=== PATIENT | female | born 1940 | race Caucasian/White ===

== ENCOUNTER 2019-07-25 10:09 | Inpatient (IN) | payer OTHER ==
[~2019-07-25] VITALS: Ht 165.1 cm; Wt 93.0 kg
[2019-07-25 14:00] VITALS: BP 134/60
--- NOTE | 2019-07-25 14:00 | NUR ---
tele pediatric allergist: initial assessment admitted this 78 year old from [facility] as a direct admit. pt is awake, a/ox4. able to ambulate with assistance. pt uses a cane to walk as stated. oriented to room and surroundings. place pt on tele sr=80's with 1st degree av block with bbb. vss. afebrile. denies sob, chest pain, or any discomfort. in no apparent distress noted. instructed to call for assistance. will continue to monitor.
[2019-07-25] MEDS ORDERED: MAGNESIUM HYDROXIDE 30 ML UDC PO PRN (14:30)
[2019-07-25] MEDS ORDERED: ACETAMINOPHEN 325 MG TABLET PO PRN (14:30)
[2019-07-25] MEDS ORDERED: ONDANSETRON HCL/PF 4 MG/2 ML VIAL IVP PRN (14:30)
[2019-07-25] MEDS ORDERED: MAG HYDROX/AL HYDROX/SIMETH 30 ML UDC PO PRN (14:30)
[2019-07-25] MEDS ORDERED: Z GUARD REMEDY 2 OZ OINT TP PRN (14:30)
[2019-07-25 15:19] LABS: BASOPHILS % (AUTO) 0.2 % (0.0-2.0); HEMATOCRIT 40 % (33-45); HEMOGLOBIN 13.3 g/dL (11.5-14.8); LYMPHOCYTES # (AUTO) 0.2 /CMM (0.8-4.8); LYMPHOCYTES % (AUTO) 2.5 % (20.0-44.0); MEAN CORPUSCULAR HGB CONC 34 g/dl (31.0-36.0); MEAN CORPUSCULAR VOLUME 86 fL (82-100); MONOCYTES # (AUTO) 0.1 /CMM (0.1-1.30); MONOCYTES % (AUTO) 0.6 % (2.0-12.0); NEUTROPHILS # (AUTO) 8.1 /CMM (1.8-8.9); NEUTROPHILS % (AUTO) 96.7 % (43.0-81.0); PLATELET COUNT (AUTO) 270 /CMM (150-450); WHITE BLOOD COUNT (AUTO) 8.4 K/uL (4.3-11.0)
[2019-07-25] MEDS ORDERED: ATEN25TA PO (15:26)
[2019-07-25] MEDS ORDERED: UMEC1BLS PO (15:26)
[2019-07-25] MEDS ORDERED: SPIR100T5 PO (15:26)
[2019-07-25] MEDS ORDERED: RIVA10TA PO (15:26)
[2019-07-25] MEDS ORDERED: PRED5DRO16 OP (15:26)
[2019-07-25] MEDS ORDERED: PRED10TA PO (15:26)
[2019-07-25] MEDS ORDERED: ATOR20TA PO (15:26)
[2019-07-25] MEDS ORDERED: MONT10TA22 PO (15:26)
[2019-07-25] MEDS ORDERED: FLEC100T2 PO (15:26)
[2019-07-25] MEDS ORDERED: PARO20TA7 PO (15:29)
[2019-07-25 15:34] LABS: ALBUMIN 3.1 g/dL (3.4-5.0); BILIRUBIN,TOTAL 0.6 mg/dL (0.2-1.0); CALCIUM, SERUM 9.6 mg/dL (8.5-10.1); MAGNESIUM 1.5 mg/dL (1.8-2.4); PHOSPHORUS 1.8 mg/dL (2.5-4.9); POTASSIUM 3.9 mmol/L (3.5-5.1); TOTAL PROTEIN, SERUM 6.5 g/dL (6.4-8.2)
[2019-07-25] MEDS: ALBUTEROL FS 2.5 MG/0.5 ML VIAL.NEB NEB SCH ×2 (15:58→20:28)
[2019-07-25] MEDS: IPRATROPIUM NEB FS 0.5 MG/2.5 ML AMPUL.NEB NEB SCH ×2 (15:59→20:28)
[2019-07-25 16:00] VITALS: BP 118/68
--- NOTE | 2019-07-25 16:10 | NUR ---
tele furnace brazer: notes remains at bedside. no c/o sob or any discomfort. mrsa suirvellance to both nostril collected and sent to lab.
[2019-07-25] MEDS: AZITHROMYCIN 250 MG TABLET PO SCH (16:30)
[2019-07-25] MEDS ORDERED: ENOXAPARIN SODIUM 40 MG/0.4 ML DISP.SYRIN SQ SCH (17:00)
--- NOTE | 2019-07-25 17:25 | NUR ---
tele wash operator: notes araceli (acnp) here and informed her that pt is on xarelto at home and clarify if lovenox still needed, stated, "i will discontinue that."
--- NOTE | 2019-07-25 17:35 | NUR ---
tele hospice team lead: md visit araceli gutierrez (acnp) at bedside at this time.
[2019-07-25] MEDS ORDERED: DEXTROSE 50%-WATER 50 ML DISP.SYRIN IV PRN (18:30)
--- NOTE | 2019-07-25 18:40 | NUR ---
tele lance crewmember/mlrs sergeant: notes resting comfortable in bed. needs attended. no distress noted. remains at bedside. will continue to monitor.
--- NOTE | 2019-07-25 19:20 | NUR ---
m/s supervisor agency appointments: notes bedside report given to efe (rn) for continuity of care.
[2019-07-25 20:41] VITALS: BP 128/58
[2019-07-25] MEDS: ATORVASTATIN 10 MG TABLET PO SCH (21:43)
[2019-07-25] MEDS: BLOOD SUGAR DIAGNOSTIC 1 EACH STRIP IN SCH (21:44)
[2019-07-25] MEDS: INSULIN REGULAR, HUMAN 100 UNIT/ML 3 ML VIAL SQ PRN (22:28)
[2019-07-26] VITALS (7 sets, daily range): BP systolic 105–128; BP diastolic 49–67
[2019-07-26] MEDS ORDERED: IPRATROPIUM NEB FS 0.5 MG/2.5 ML AMPUL.NEB NEB PRN (05:00)
[2019-07-26] MEDS ORDERED: ALBUTEROL FS 2.5 MG/0.5 ML VIAL.NEB NEB PRN (05:00)
[2019-07-26] MEDS: INSULIN REGULAR, HUMAN 100 UNIT/ML 3 ML VIAL SQ PRN ×3 (06:02→16:37)
[2019-07-26] MEDS: BLOOD SUGAR DIAGNOSTIC 1 EACH STRIP IN SCH ×4 (06:33→22:12)
[2019-07-26 06:51] LABS: BASOPHILS % (AUTO) 0.2 % (0.0-2.0); EOSINOPHILS % (AUTO) 0.1 % (0.0-6.0); HEMATOCRIT 38 % (33-45); HEMOGLOBIN 12.8 g/dL (11.5-14.8); LYMPHOCYTES # (AUTO) 1.3 /CMM (0.8-4.8); LYMPHOCYTES % (AUTO) 9.2 % (20.0-44.0); MEAN CORPUSCULAR HGB CONC 34 g/dl (31.0-36.0); MEAN CORPUSCULAR VOLUME 86 fL (82-100); MONOCYTES % (AUTO) 7.1 % (2.0-12.0); NEUTROPHILS # (AUTO) 11.8 /CMM (1.8-8.9); NEUTROPHILS % (AUTO) 83.4 % (43.0-81.0); PLATELET COUNT (AUTO) 288 /CMM (150-450); RED BLOOD CELL COUNT(AUTO) 4.44 MIL/uL (4.0-5.2); WHITE BLOOD COUNT (AUTO) 14.2 K/uL (4.3-11.0)
--- NOTE | 2019-07-26 07:03 | NUR ---
SUPERVISOR TICKET SALES NOTES PATIENT ASLEEP IN BED WITH NO DISTRESS NOTED. CALL LIGHT WITHIN REACH. ALL DUE MEDS GIVEN ORDERED WITH NO ASE NOTED. NO FURTHER C/O PAIN OR DISCOMFORT. PERIPHERAL LINE INTACT AND PATENT. BED IN LOW LOCK SETTING. ROOM FREE OF CLUTTER AND BELONGINGS KEPT NEAR BEDSIDE. WILL CONTINUE TO MONITOR
[2019-07-26 07:14] LABS: CALCIUM, SERUM 10.1 mg/dL (8.5-10.1); MAGNESIUM 1.8 mg/dL (1.8-2.4); PHOSPHORUS 2.6 mg/dL (2.5-4.9); POTASSIUM 4.2 mmol/L (3.5-5.1)
--- NOTE | 2019-07-26 07:15 | NUR ---
FISHING GEAR MECHANIC OPENING NOTES RECEIVED PT LYING ON BED,SLEEPING.ON 2LPM O2 VIA NC CONTINUOUSLY. ON TELE HR IS 67 WITH NSR.NO SOB AND ACUTE DISTRESS NOTED.IV LINE IS ON RIGHT AC G22,SL.SITE IS CLEAN,DRY AND INTACT.NO INFILTRATION NOTED.SAFETY IS MAINTAINED AT ALL TIMES.BED IS IN LOW POSITION AND LOCKED.CALL LIGHT IS WITHIN REACH.WILL CONTINUE TO MONITOR THE PT CLOSELY.
[2019-07-26 07:25] LABS: THYROID STIMULATING HORMONE 1.304 uIU/mL (0.358-3.74)
[2019-07-26] MEDS: IPRATROPIUM NEB FS 0.5 MG/2.5 ML AMPUL.NEB NEB SCH ×6 (07:35→23:06)
[2019-07-26] MEDS: ALBUTEROL FS 2.5 MG/0.5 ML VIAL.NEB NEB SCH ×6 (07:35→23:06)
[2019-07-26] MEDS: ATENOLOL 25 MG TABLET PO SCH (08:18)
[2019-07-26] MEDS: PAROXETINE HCL 20 MG TABLET PO SCH (08:18)
[2019-07-26] MEDS: PANTOPRAZOLE 40 MG TABLET.DR PO SCH (08:18)
[2019-07-26] MEDS: MONTELUKAST SODIUM (10MG) 10 MG TABLET PO SCH (08:18)
[2019-07-26] MEDS: FLECAINIDE ACETATE (100 MG) 100 MG TABLET PO SCH ×2 (08:19→16:36)
[2019-07-26] MEDS: prednisoLONE ACET 1% OPHT DROP 5 ML BOTTLE OP SCH ×2 (08:19→16:36)
[2019-07-26] MEDS: SPIRONOLACTONE 25 MG TABLET PO SCH (08:21)
[2019-07-26] MEDS: RIVAROXABAN 10 MG TABLET PO SCH (08:30)
[2019-07-26] MEDS: FLUTICASONE/VILANTEROL 1 EACH BLST.W.DEV IH SCH (09:54)
--- NOTE | 2019-07-26 11:30 | NUR ---
FOOD PRESERVATION SCIENTIST NOTES PT IS REQUESTED TO REMOVE THE IV LINE ON RIGHT AC,MAKES SO DISCOMFORT.OFFERED TO INSERT ANOTHER ONE,BUT SHE REFUSED X3.REMOVED AND NO BLEEDING NOTED.
[2019-07-26] MEDS: AZITHROMYCIN 250 MG TABLET PO SCH (16:35)
--- NOTE | 2019-07-26 18:32 | NUR ---
MONUMENT STONECUTTER CLOSING NOTES PT IS LYING ON BED.ALERT/ORIENTED X4.ON 2LPM O2 VIA NC CONTINUOUSLY.NO SOB NOTED.CAN AMBULATE WELL WITH ONE PERSON ASSISTANCE.NO SIGNIFICANT CHANGES NOTED IN THE SHIFT.VITAL SIGNS ARE STABLE.WILL ENDORSE TO LAWN MOWER RN FOR HEMANT AND PENDING URINE COLLECTION.
--- NOTE | 2019-07-26 19:52 | NUR ---
CRAFT RECRUITER NOTES PATIENT ASLEEP IN BED WITH NO DISTRESS NOTED. CALL LIGHT WITHIN REACH. AT BEDSIDE. NO C/O PAIN OR DISCOMFORT. ENCOURAGED USE OF CALL LIGHT FOR ASSISTANCE AND VERBALIZED GOOD UNDERSTANDING. BED IN LOW LOCK SETTING. ROOM FREE OF CLUTTER AND BELONGINGS KEPT NEAR BEDSIDE. WILL CONTINUE TO MONITOR
[2019-07-26] MEDS: ATORVASTATIN 10 MG TABLET PO SCH (22:12)
[2019-07-26] MEDS: methylPREDNISolone SOD SUCC 40 MG/ML VIAL IV SCH (22:12)
[2019-07-26 23:38] LABS: APPEARANCE,URINE Clear (CLEAR); BILIRUBIN,URINE Negative (NEGATIVE); BLOOD, URINE Negative Ery/uL (NEGATIVE); COLOR,URINE Yellow (YELLOW); KETONES,URINE Negative (NEGATIVE); LEUKOCYTE ESTERASE ,URINE Trace (NEGATIVE); NITRITE, URINE Negative (NEGATIVE); PH,URINE 6.5 (5.0-8.0); PROTEIN,URINE Negative (NEGATIVE); UGLUCOSE Negative (NEGATIVE); UROBILINOGEN,URINE 0.2 EU/dL (0.2)
[2019-07-26 23:47] LABS: BACTERIA,URINE Few /HPF (None Seen); RBC,URINE NONE SEEN /HPF (0-2); SQUAMOUS EPITHELIAL CELL,UR Few /HPF (None Seen); WBC,URINE 0-2 /HPF (0-3)
[2019-07-27] MEDS: ALBUTEROL FS 2.5 MG/0.5 ML VIAL.NEB NEB SCH ×2 (03:21→07:55)
[2019-07-27] MEDS: IPRATROPIUM NEB FS 0.5 MG/2.5 ML AMPUL.NEB NEB SCH ×2 (03:21→07:55)
[2019-07-27 04:00] VITALS: BP 115/63
[2019-07-27] MEDS: INSULIN REGULAR, HUMAN 100 UNIT/ML 3 ML VIAL SQ PRN (06:10)
[2019-07-27 06:23] LABS: BASOPHILS % (AUTO) 0.3 % (0.0-2.0); HEMATOCRIT 36 % (33-45); LYMPHOCYTES # (AUTO) 0.4 /CMM (0.8-4.8); MEAN CORPUSCULAR HGB CONC 33 g/dl (31.0-36.0); MEAN CORPUSCULAR VOLUME 86 fL (82-100); MONOCYTES # (AUTO) 0.1 /CMM (0.1-1.30); MONOCYTES % (AUTO) 1.3 % (2.0-12.0); NEUTROPHILS # (AUTO) 8.2 /CMM (1.8-8.9); NEUTROPHILS % (AUTO) 94.4 % (43.0-81.0); PLATELET COUNT (AUTO) 262 /CMM (150-450); RED BLOOD CELL COUNT(AUTO) 4.21 MIL/uL (4.0-5.2); WHITE BLOOD COUNT (AUTO) 8.7 K/uL (4.3-11.0)
--- NOTE | 2019-07-27 06:46 | NUR ---
DIGITAL CONTENT MANAGER NOTES PATIENT ASLEEP IN BED WITH NO DISTRESS NOTED. CALL LIGHT WITHIN REACH. ALL DUE MEDS GIVEN ORDERED WITH NO ASE NOTED. NO FURTHER C/O PAIN OR DISCOMFORT. LFA #24 GAUGE PERIPHERAL LINE INTACT AND PATENT. BED IN LOW LOCK SETTING. ROOM FREE OF CLUTTER AND BELONGINGS KEPT NEAR BEDSIDE. WILL CONTINUE TO MONITOR
[2019-07-27 07:00] LABS: CALCIUM, SERUM 9.1 mg/dL (8.5-10.1); CREATININE 0.9 mg/dL (0.6-1.3); MAGNESIUM 1.8 mg/dL (1.8-2.4); POTASSIUM 4.2 mmol/L (3.5-5.1)
--- NOTE | 2019-07-27 07:30 | NUR ---
ENVIRONMENTAL EPIDEMIOLOGIST OPENING NOTES RECEIVED PT SITTING UPRIGHT IN BED, REQUESTING FOR BREATHING TX. NOTIFIED RT AND STATED HE WILL GIVE BREATHING TX NOW. PT IS A/O X4, AFEBRILE. RESPIRATIONS ARE EVEN AND UNLABORED, NOT IN ANY ACUTE DISTRESS NOTED. PT DENIES ANY PAIN AT THIS TIME, NO C/O SOB, N/V. IV SITE TO LFA INTACT, NO INFILTRATION NOTED. DRESSING KEPT CLEAN AND DRY. SAFETY MEASURES ARE IN PLACE. INSTRUCTED PT TO USE CALL LIGHT WHEN ASSISTANCE IS NEEDED, CALL LIGHT IS LEFT WITHIN REACH. WILL MONITOR THROUGHOUT SHIFT FOR CONTINUITY OF CARE.
[2019-07-27 08:00] VITALS: BP 140/65
[2019-07-27] MEDS ORDERED: METH4TAB17 PO (08:27)
[2019-07-27] MEDS ORDERED: AZIT250T PO (08:27)
[2019-07-27] MEDS: PANTOPRAZOLE 40 MG TABLET.DR PO SCH (08:37)
[2019-07-27] MEDS: MONTELUKAST SODIUM (10MG) 10 MG TABLET PO SCH (08:37)
[2019-07-27] MEDS: methylPREDNISolone SOD SUCC 40 MG/ML VIAL IV SCH (08:37)
[2019-07-27] MEDS: BLOOD SUGAR DIAGNOSTIC 1 EACH STRIP IN SCH (08:37)
[2019-07-27 08:38] VITALS: BP 140/65
[2019-07-27] MEDS: ATENOLOL 25 MG TABLET PO SCH (08:38)
[2019-07-27] MEDS: FLECAINIDE ACETATE (100 MG) 100 MG TABLET PO SCH (08:38)
[2019-07-27] MEDS: FLUTICASONE/VILANTEROL 1 EACH BLST.W.DEV IH SCH (08:38)
[2019-07-27] MEDS: PAROXETINE HCL 20 MG TABLET PO SCH (08:38)
[2019-07-27] MEDS: SPIRONOLACTONE 25 MG TABLET PO SCH (08:38)
[2019-07-27] MEDS: prednisoLONE ACET 1% OPHT DROP 5 ML BOTTLE OP SCH (08:41)
[2019-07-27] MEDS: RIVAROXABAN 10 MG TABLET PO SCH (08:41)
--- NOTE | 2019-07-27 10:35 | NUR ---
SQUEEZER OPERATOR CLOSING NOTES PT DISCHARGED TO HOME IN MEDICALLY STABLE CONDITION ACCOMPANIED BY VIA W/C. PT IS A/O X4, AFEBRILE. RESPIRATIONS ARE EVEN AND UNLABORED, NOT IN ANY ACUTE DISTRESS NOTED. PUPILS ARE REACTIVE TO LIGHT, BILATERAL HAND MANAGER USER EXPERIENCE ARE STRONG AND EQUAL. PT DENIES ANY PAIN AT THIS TIME, NO C/O SOB, N/V. ABDOMEN IS SOFT AND NONDISTENDED, BOWEL SOUNDS ARE PRESENT IN ALL 4 QUADRANTS UPON AUSCULTATION. DENIES ANY BLADDER DISCOMFORT. PICTURES TAKEN TO TORIE, BLE AND SACRAL, PLACED IN CHART. SKIN IS INTACT, KEPT CLEAN AND DRY. IV SITE REMOVED, APPLIED PRESSURE AND TOLERATED WELL. EXPLAINED DISCHARGE PAPERWORK TO PT WITH VERBAL AND WRITTEN UNDERSTANDING. ALL BELONGINGS SENT HOME WITH PT. PT LEFT IN STABLE CONDITION.
== END 2019-07-27 10:35 | disposition home or self-care (01) | DRG 189 ==
LOC: TELE 13:43 → MED 07-27 08:55
PROVIDERS: ADMIT Registered Nurse; ATTEND Student in an Organized Health Care Education/Training Program
DX: J96.01 Acute respiratory failure with hypoxia (principal); J45.901 Unspecified asthma with (acute) exacerbation; I48.91 Unspecified atrial fibrillation; I10 Essential (primary) hypertension; E11.9 Type 2 diabetes mellitus without complications; E66.01 Morbid (severe) obesity due to excess calories; Z79.01 Long term (current) use of anticoagulants; Z87.891 Personal history of nicotine dependence; Z86.718 Personal history of other venous thrombosis and embolism; K58.9 Irritable bowel syndrome, unspecified; Z68.34 Body mass index [BMI] 34.0-34.9, adult
CPT/HCPCS: 36415; 80048-TC; 80053-TC; 80061-TC; 81000-TC; 82962-TC; 83735-TC; 84100-TC; 84443-TC; 85025-TC; 87081-TC; 94799-TC; 97116-TC; 97530-TC; G0378; J1815; J2920

== ENCOUNTER 2019-07-28 09:14 | Inpatient (IN) | payer OTHER ==
[~2019-07-28] VITALS: Ht 170.2 cm; Wt 92.5 kg
[~2019-07-28 09:14] MED LIST: ATEN25TA PO; ATOR20TA PO; AZIT250T PO; FLEC100T2 PO; METH4TAB17 PO; MONT10TA22 PO; PARO20TA7 PO; PRED5DRO16 OP; RIVA10TA PO; SPIR100T5 PO; UMEC1BLS PO
[2019-07-28 11:38] VITALS: BP 123/66
--- NOTE | 2019-07-28 11:50 | NUR ---
LABORER CONSTRUCTION OR LEAK GANG NOTE RECEIVED PATIENT FROM ADMIT DIRECT FROM [facility] , PATIENT ALERT , ORIENTED X3 ,ON 2L NC ,NO SOB NOTED AT THIS TIME , ADMITTED UNDER CARE DR NOVA ,WITH DX NSTEMI ,PLACED ON TELE MONITOR SR HR 70, PER DR NOVA CALLED TO DR TYLER FOR CARDIOLOGY CONSULT, HOSPITAL ORIENTATION DONE ,VS TAKEN BELONGING CHECKED , PLAN OF CARE DISCUSSED WITH PATIENT, BED IN LOWEST ABD LOCKED POSITION
--- NOTE | 2019-07-28 12:30 | NUR ---
HEALTH CARE LIAISON NOTE DR NOVA AT BEDSIDE OK TO START CARDIAC DIET
--- NOTE | 2019-07-28 13:00 | NUR ---
LATHE SET UP PERSON NOTE PER DR KEENA QUINTANILLA TO CALL DR TYLER FOR CARDIOLOGY CONSULT , SPOKE WITH DR TYLER AWARE OF IT
--- NOTE | 2019-07-28 13:37 | NUR ---
MANAGEMENT TECH NOTE SPOKE WITH DR MARTI ABOUT HOME MEDS STATED THAT WILL CHECK IT OUT
--- NOTE | 2019-07-28 14:06 | NUR ---
CAREER SERVICES OFFICER NOTE MRSA SPECIMEN COLLECTED ORDERED
[2019-07-28] MEDS ORDERED: MAGNESIUM HYDROXIDE 30 ML UDC PO PRN (14:30)
[2019-07-28] MEDS ORDERED: ONDANSETRON HCL/PF 4 MG/2 ML VIAL IVP PRN (14:30)
[2019-07-28] MEDS ORDERED: HYDROCODONE/APAP 5/325MG 1 EACH TABLET PO PRN (14:30)
[2019-07-28] MEDS ORDERED: ZOLPIDEM TARTRATE 5 MG TABLET PO PRN (14:30)
[2019-07-28] MEDS ORDERED: ACETAMINOPHEN 325 MG TABLET PO PRN (14:30)
[2019-07-28] MEDS ORDERED: Z GUARD REMEDY 2 OZ OINT TP PRN (14:30)
[2019-07-28] MEDS ORDERED: MAG HYDROX/AL HYDROX/SIMETH 30 ML UDC PO PRN (14:30)
--- NOTE | 2019-07-28 14:30 | NUR ---
telecasting engineer note per dr faustina green to order breathing tx, order carried out
[2019-07-28] MEDS: AZITHROMYCIN 250 MG TABLET PO SCH (15:01)
[2019-07-28] MEDS: PAROXETINE HCL 10 MG TABLET PO SCH (15:01)
[2019-07-28] MEDS: ALBUTEROL FS 2.5 MG/3 ML VIAL.NEB NEB PRN ×2 (15:09→20:15)
[2019-07-28 15:29] LABS: BASOPHILS # (AUTO) 0.1 /CMM (0.0-0.2); BASOPHILS % (AUTO) 0.7 % (0.0-2.0); EOSINOPHILS % (AUTO) 2.9 % (0.0-6.0); HEMATOCRIT 35 % (33-45); HEMOGLOBIN 11.5 g/dL (11.5-14.8); LYMPHOCYTES # (AUTO) 1.5 /CMM (0.8-4.8); MEAN CORPUSCULAR HGB CONC 33 g/dl (31.0-36.0); MEAN CORPUSCULAR VOLUME 87 fL (82-100); NEUTROPHILS # (AUTO) 8.3 /CMM (1.8-8.9); NEUTROPHILS % (AUTO) 74.4 % (43.0-81.0); PLATELET COUNT (AUTO) 283 /CMM (150-450); RED BLOOD CELL COUNT(AUTO) 4.03 MIL/uL (4.0-5.2); WHITE BLOOD COUNT (AUTO) 11.2 K/uL (4.3-11.0)
[2019-07-28 15:36] LABS: CALCIUM, SERUM 9.1 mg/dL (8.5-10.1); CARBON DIOXIDE 25 mmol/L (21-32); CHLORIDE 107 mmol/L (98-107); CREATININE 0.9 mg/dL (0.6-1.3); GLUCOSE 128 mg/dL (74-106); POTASSIUM 3.8 mmol/L (3.5-5.1); SODIUM SERUM 142 mmol/L (136-145); UREA NITROGEN, BLOOD 18 mg/dL (7-18)
[2019-07-28 16:00] VITALS: BP 114/46
[2019-07-28] MEDS: methylPREDNISolone SOD SUCC 40 MG/ML VIAL IV SCH (16:27)
[2019-07-28] MEDS: RIVAROXABAN 10 MG TABLET PO SCH (16:28)
--- NOTE | 2019-07-28 17:56 | NUR ---
ASSEMBLING FABRICATOR NOTE TAMBOCOR 100 MG STILL NOT AVAILABLE SINCE 1699 CALLED TO PHARMACY X3 STATED THAT WILL BRING SOON ,WILL F\U
[2019-07-28] MEDS: FLECAINIDE ACETATE (100 MG) 100 MG TABLET PO SCH (18:12)
--- NOTE | 2019-07-28 18:45 | NUR ---
ANESTHESIOLOGY TEACHER NOTE FAMILY AT BEDSIDE .PATIENT ABLE TO GO TO BR WITH ASSISTANCE, NOT IN DISTRESS
--- NOTE | 2019-07-28 19:01 | NUR ---
HANDBAG FRAMES INSPECTOR NOTE DR NOVA NOTIFIED THAT TROP NOW 0.165 NO NEW ORDER GIVEN AT THIS TIME
--- NOTE | 2019-07-28 19:10 | NUR ---
RN OPENING NOTES: PATIENT IN BED. A&OX4. NO SOB. NO C/O PAIN. ON CARDIAC MONITORING SHOWING SR WITH HR 70s. ON CARDIAC DIET. SAFETY MEASURES IMPLEMENTED. BED IN LOWEST POSITION. CALL LIGHT PLACED WITHIN REACH. WILL CONT. TO MONITOR.
[2019-07-28 20:00] VITALS: BP 131/80
--- NOTE | 2019-07-28 21:34 | NUR ---
readmitted in 24hours. Patient just went home yesterday,was seen at [facility] today due to worsening SOB and wheezing. She lives with spouse and adult children. She is independent with adl's, has a walker if needed for ambulation, no homehealth reported. Pcp is . Current dc plan is to return home. Addendum: 07/28/19 at 2135 by ANA MARIA COATS RN Amended: Links added.
[2019-07-28] MEDS: ATORVASTATIN 10 MG TABLET PO SCH (22:01)
[2019-07-28] MEDS: MONTELUKAST SODIUM (10MG) 10 MG TABLET PO SCH (22:02)
[2019-07-29] VITALS: BP 142/78
--- NOTE | 2019-07-29 00:35 | NUR ---
RN NOTES: PATIENT C/O SOB AND STATES SHE CAN'T BREATHE. HOB KEPT ELEVATED. NO AUDIBLE WHEEZING NOTED. DIMINISHED LUNG SOUNDS UPON AUSCULTATION. PATIENT SATTING 97% ON O2 AT 2LPM VIA NC. CALLED RT ANNABELLA TO ADMINISTER BREATHING TX PRN.
[2019-07-29] MEDS: ALBUTEROL FS 2.5 MG/3 ML VIAL.NEB NEB PRN ×5 (01:11→21:46)
[2019-07-29 04:00] VITALS: BP 145/67
--- NOTE | 2019-07-29 07:00 | NUR ---
RN CLOSING NOTES: PATIENT IN BED, ASLEEP, BUT EASILY AWAKENED. NO SOB. NO C/O PAIN. SAFETY MEASURES IMPLEMENTED. ENDORSED TO NEXT SHIFT NURSE FOR CONTINUITY OF CARE.
[2019-07-29 07:02] LABS: BASOPHILS % (AUTO) 0.4 % (0.0-2.0); EOSINOPHILS % (AUTO) 0.1 % (0.0-6.0); HEMATOCRIT 36 % (33-45); HEMOGLOBIN 11.8 g/dL (11.5-14.8); LYMPHOCYTES # (AUTO) 0.9 /CMM (0.8-4.8); LYMPHOCYTES % (AUTO) 9.6 % (20.0-44.0); MEAN CORPUSCULAR HGB CONC 33 g/dl (31.0-36.0); MEAN CORPUSCULAR VOLUME 87 fL (82-100); MONOCYTES # (AUTO) 0.7 /CMM (0.1-1.30); MONOCYTES % (AUTO) 7.5 % (2.0-12.0); NEUTROPHILS # (AUTO) 7.6 /CMM (1.8-8.9); NEUTROPHILS % (AUTO) 82.4 % (43.0-81.0); PLATELET COUNT (AUTO) 275 /CMM (150-450); RED BLOOD CELL COUNT(AUTO) 4.11 MIL/uL (4.0-5.2); WHITE BLOOD COUNT (AUTO) 9.3 K/uL (4.3-11.0)
[2019-07-29 07:15] LABS: CALCIUM, SERUM 9.1 mg/dL (8.5-10.1); CREATININE 0.8 mg/dL (0.6-1.3); MAGNESIUM 2.1 mg/dL (1.8-2.4); PHOSPHORUS 2.7 mg/dL (2.5-4.9); POTASSIUM 4.4 mmol/L (3.5-5.1)
--- NOTE | 2019-07-29 07:25 | NUR ---
TELE/RN OPENING NOTES PATIENT IN BED SLEEPING COMFORTABLY. EASILY AROUSABLE. PATIENT IS ALERT AND ORIENTED X4. ABLE TO MAKE NEEDS KNOWN. NO PAIN OR ACUTE DISTRESS AT THIS TIME. RESPIRATION EVEN AND UNLABORED. SKIN IS DRY WARM TO TOUCH. PATIENT CONTINUES ON CARDIAC MONITORING SR WITH HR 80s. PATIENT NOTED WITH IV ACCESS ON RFA #20G. INTACT AND PATENT. FLUSHING WELL. NO S/S OF INFECTION OR INFILTRATION. ALL NEEDS ANTICIPATED. CALL LIGHT WITHIN REACHED. SAFETY MAINTAINED. BED LOCKED AND IN LOWEST POSITION. PLAN OF CARE DISCUSSED WITH PATIENT. WILL CONTINUE TO MONITOR CLOSELY.
[2019-07-29] MEDS: PANTOPRAZOLE 40 MG TABLET.DR PO SCH (07:37)
[2019-07-29 08:00] VITALS: BP 138/73
[2019-07-29] MEDS: FLUTICASONE/VILANTEROL 1 EACH BLST.W.DEV IH SCH (08:42)
[2019-07-29] MEDS: PAROXETINE HCL 10 MG TABLET PO SCH (08:42)
[2019-07-29] MEDS: methylPREDNISolone SOD SUCC 40 MG/ML VIAL IV SCH ×3 (08:42→16:47)
[2019-07-29] MEDS: ATENOLOL 25 MG TABLET PO SCH (08:43)
[2019-07-29] MEDS ORDERED: SPIRONOLACTONE 50 MG TABLET PO SCH (09:00)
[2019-07-29] MEDS ORDERED: IV NS 0.9% 250 ML IV ONE (09:55)
[2019-07-29] MEDS ORDERED: IOHEXOL-350 100 ML VIAL IV ONE (09:55)
[2019-07-29] MEDS ORDERED: CT SWABBABLE VALVE TRANS SET 1 EA INFUS.SET MC ONE (09:55)
--- NOTE | 2019-07-29 10:10 | NUR ---
TELE/RN NOTES PATIENT WAS TAKEN BY [address] TO DO HER CT ANGIO HEART W/ 3D IMAGES. IV ACCES #18G WAS PLACED ON LAC. PATIENT LEFT THE UNIT IN STABLE CONDITION. WILL AWAIT FOR THE PATIENT RETURN.
[2019-07-29] MEDS ORDERED: METOPROLOL TARTRATE INJ 5 MG/5 ML AMPUL ONE ×3 (10:13→10:56)
[2019-07-29] MEDS: METOPROLOL TARTRATE INJ 5 MG/5 ML AMPUL IVP PRN ×7 (10:22→10:52)
[2019-07-29] MEDS ORDERED: NITROGLYCERIN 0.4 MG/TAB BOTTLE SL ONE (10:30)
--- NOTE | 2019-07-29 11:18 | NUR ---
TELE/RN NOTES PATIENT CAME BACK IN THE UNIT AFTER HER CT ANGIO HEART W/ 3D IMAGES. PATIENT CONTINUES TO REMAIN IN STABLE CONDITION. WILL CONTINUE TO MONITOR CLOSELY.
[2019-07-29] MEDS: SPIRONOLACTONE 25 MG TABLET PO SCH (11:20)
[2019-07-29] MEDS: FLECAINIDE ACETATE (100 MG) 100 MG TABLET PO SCH ×2 (11:20→16:47)
[2019-07-29 12:00] VITALS: BP 112/63
[2019-07-29] MEDS: AZITHROMYCIN 250 MG TABLET PO SCH (15:13)
[2019-07-29 16:00] VITALS: BP 132/61
[2019-07-29] MEDS: RIVAROXABAN 10 MG TABLET PO SCH (16:49)
--- NOTE | 2019-07-29 18:27 | NUR ---
TELE/RN CLOSING NOTES PATIENT CONTINUES TO REMAIN IN STABLE CONDITION THROUGHOUT THE SHIFT. PROVIDED COMFORT AND SAFETY. PATIENT NOTED WITH IV ACCESS ON RFA #20G AND LAC #18G. INTACT AND PATENT. FLUSHING WELL. NO S/S OF INFECTION OR INFILTRATION. PATIENT ABLE TO TOLERATE MEALS AND MEDS WELL. ALL NEEDS ANTICIPATED. CALL LIGHT WITHIN REACHED. SAFETY MAINTAINED. BED LOCKED AND IN LOWEST POSITION. WILL CONTINUE TO MONITOR CLOSELY. ENDORSED TO PM NURSE FOR HEMANT.
[2019-07-29 20:00] VITALS: BP 118/44
[2019-07-29] MEDS: ATORVASTATIN 10 MG TABLET PO SCH (22:08)
[2019-07-29] MEDS: MONTELUKAST SODIUM (10MG) 10 MG TABLET PO SCH (22:08)
[2019-07-30] VITALS: BP 127/53
[2019-07-30] MEDS: ALBUTEROL FS 2.5 MG/3 ML VIAL.NEB NEB PRN ×2 (01:21→06:26)
[2019-07-30 04:00] VITALS: BP 121/52
[2019-07-30 07:01] LABS: BASOPHILS % (AUTO) 0.2 % (0.0-2.0); HEMATOCRIT 36 % (33-45); HEMOGLOBIN 11.7 g/dL (11.5-14.8); LYMPHOCYTES # (AUTO) 0.8 /CMM (0.8-4.8); LYMPHOCYTES % (AUTO) 7.5 % (20.0-44.0); MEAN CORPUSCULAR HGB CONC 33 g/dl (31.0-36.0); MEAN CORPUSCULAR VOLUME 87 fL (82-100); MONOCYTES # (AUTO) 0.8 /CMM (0.1-1.30); MONOCYTES % (AUTO) 7.5 % (2.0-12.0); NEUTROPHILS % (AUTO) 84.8 % (43.0-81.0); PLATELET COUNT (AUTO) 329 /CMM (150-450); RED BLOOD CELL COUNT(AUTO) 4.12 MIL/uL (4.0-5.2); WHITE BLOOD COUNT (AUTO) 10.6 K/uL (4.3-11.0)
--- NOTE | 2019-07-30 07:19 | NUR ---
TELE/RN OPENING NOTES PATIENT IN BED RESTING COMFORTABY. EASILY AROUSABLE. PATIENT IS ALERT AND ORIENTED X4. ABLE TO MAKE NEEDS KNOWN. NO PAIN OR ACUTE DISTRESS AT THIS TIME. RESPIRATION EVEN AND UNLABORED. SKIN IS DRY WARM TO TOUCH. PATIENT CONTINUES ON CARDIAC MONITORING SR WITH HR 70s. PATIENT NOTED WITH IV ACCESS ON RFA #20G AND LEFT AC #18G. INTACT AND PATENT. FLUSHING WELL. NO S/S OF INFECTION OR INFILTRATION. ALL NEEDS ANTICIPATED. CALL LIGHT WITHIN REACHED. SAFETY MAINTAINED. BED LOCKED AND IN LOWEST POSITION. PLAN OF CARE DISCUSSED WITH PATIENT. WILL CONTINUE TO MONITOR CLOSELY.
[2019-07-30 07:27] LABS: CALCIUM, SERUM 9.1 mg/dL (8.5-10.1); PHOSPHORUS 2.6 mg/dL (2.5-4.9)
[2019-07-30] MEDS: PANTOPRAZOLE 40 MG TABLET.DR PO SCH (07:43)
[2019-07-30 08:00] VITALS: BP 153/66
[2019-07-30] MEDS: FLUTICASONE/VILANTEROL 1 EACH BLST.W.DEV IH SCH (08:17)
[2019-07-30] MEDS: FLECAINIDE ACETATE (100 MG) 100 MG TABLET PO SCH (08:17)
[2019-07-30 08:18] VITALS: BP 153/66
[2019-07-30] MEDS: methylPREDNISolone SOD SUCC 40 MG/ML VIAL IV SCH (08:18)
[2019-07-30] MEDS: PAROXETINE HCL 10 MG TABLET PO SCH (08:18)
[2019-07-30] MEDS: ATENOLOL 25 MG TABLET PO SCH (08:18)
[2019-07-30] MEDS: SPIRONOLACTONE 25 MG TABLET PO SCH (08:18)
[2019-07-30] MEDS ORDERED: SPIRONOLACTONE 25 MG TABLET PO SCH (09:00)
--- NOTE | 2019-07-30 12:03 | NUR ---
CORRECTIONAL CASEWORK SPECIALIST NOTES FAMILY MEMBER CAME TO THE UNIT TO PLASTIC MANAGER THE PATIENT. ALL DISCHARGE PAPERS WAS SIGNED AND GIVEN TO THE PATIENT. IV ACCESS REMOVED. PICTURES WAS TAKEN AND WAS PLACED IN THE CHART. PATIENT WAS HELPED DRESS AND GET ON HER WHEELCHAIR. PATIENT LEFT THE UNIT IN STABLE CONDITION.
== END 2019-07-30 12:03 | disposition home or self-care (01) | DRG 202 ==
LOC: TELE1 11:06
PROVIDERS: ADMIT Student in an Organized Health Care Education/Training Program; ATTEND Student in an Organized Health Care Education/Training Program
DX: J45.901 Unspecified asthma with (acute) exacerbation (principal); I21.A1 Myocardial infarction type 2; I48.91 Unspecified atrial fibrillation; I10 Essential (primary) hypertension; D72.829 Elevated white blood cell count, unspecified; E66.01 Morbid (severe) obesity due to excess calories; Z79.01 Long term (current) use of anticoagulants; K58.9 Irritable bowel syndrome, unspecified; Z68.32 Body mass index [BMI] 32.0-32.9, adult; I34.0 Nonrheumatic mitral (valve) insufficiency; R91.8 Other nonspecific abnormal finding of lung field
CPT/HCPCS: 36415; 75574; 80048-TC; 80061-TC; 83735-TC; 84100-TC; 84484-TC; 85025-TC; 87081-TC; G0378; J2920; J3490; J7050; Q9967

== ENCOUNTER 2019-09-02 11:18 | Inpatient (IN) | payer OTHER ==
[~2019-09-02] VITALS: Ht 170.2 cm; Wt 91.2 kg
--- NOTE | 2019-09-02 11:25 | NUR ---
TELE/RN RECEIVING NOTES RECEIVED PATIENT FROM [facility]. PATIENT WAS BIB BY 2 EMT. PATIENT WAS TRANSFERRED TO BED. INITIAL SKIN ASSESSMENT WAS DONE. PATIENT SKIN IS INTACT WITH SLIGHT DISCOLORATION ON LEFT AC. PHOTOS WAS TAKEN AND WAS PLACED IN THE CHART. PATIENT IS ALERT AND ORIENTED X4. NO PAIN OR ACUTE DISTRESS AT THIS TIME. RESPIRATION EVEN AND UNLABORED. SKIN IS DRY WARM TO TOUCH. NOTED WITH IV ACCESS ON L FA. INTACT AND PATENT. FLUSHING WELL. NO S/S OF INFECTION OR INFILTRATION. ALL NEEDS ANTICIPATED. CALL LIGHT WITHIN REACHED. SAFETY MAINTAINED. BED LOCKED AND IN LOWEST POSITION. PLAN OF CARE DISCUSSED. WILL CONTINUE TO MONITOR CLOSELY.
[2019-09-02] MEDS ORDERED: ALBU2.5V38 INH (11:47)
[2019-09-02] MEDS ORDERED: CETI-102 PO (11:47)
[2019-09-02] MEDS ORDERED: PARO10TA86 PO (11:47)
[2019-09-02] MEDS ORDERED: ASPI-605 PO (11:47)
[2019-09-02] MEDS ORDERED: MAGNESIUM HYDROXIDE 30 ML UDC PO PRN (14:30)
[2019-09-02] MEDS ORDERED: HYDROCODONE/APAP 5/325MG 1 EACH TABLET PO PRN (14:30)
[2019-09-02] MEDS ORDERED: MAG HYDROX/AL HYDROX/SIMETH 30 ML UDC PO PRN (14:30)
[2019-09-02] MEDS ORDERED: ONDANSETRON HCL/PF 4 MG/2 ML VIAL IVP PRN (14:30)
[2019-09-02] MEDS: ALBUTEROL FS 2.5 MG/3 ML VIAL.NEB NEB PRN ×2 (15:07→20:38)
[2019-09-02] MEDS: IPRATROPIUM NEB FS 0.5 MG/2.5 ML AMPUL.NEB NEB PRN ×2 (15:07→20:38)
[2019-09-02] MEDS: RIVAROXABAN 10 MG TABLET PO SCH (15:36)
[2019-09-02 16:00] VITALS: BP 127/78
[2019-09-02] MEDS: methylPREDNISolone SOD SUCC 40 MG/ML VIAL IV SCH (16:34)
--- NOTE | 2019-09-02 18:42 | NUR ---
TELE/RN CLOSING NOTES PATIENT CONTINUES TO REMAIN IN STABLE CONDITION THROUGHOUT THE SHIFT. PROVIDED COMFORT AND SAFETY. PATIENT ABLE TO TOLERATE MEALS AND MEDS WELL. IV ACCESS ON LEFT FA INTACT AND PATENT. FLUSHING WELL. NO S/S OF INFECTION OR INFILTRATION. ALL NEEDS ANTICIPATED. CALL LIGHT WITHIN REACHED. BED LOCKED AND IN LOWEST POSITION. WILL CONTINUE TO MONITOR CLOSELY. ENDORSED TO PM NURSE FOR HEMANT.
--- NOTE | 2019-09-02 19:10 | NUR ---
RN NOTES: RECEIVED AWAKE ON BED, ON SEMI FOWLERS POSITION, WITH PRESENT AT BED SIDE, A/OX4, ABLE TO VERBALIZED NEEDS, ON O2 AT 2L/MIN VIA NC, ON TELE MONITOR SINUS RHYTHM WITH BBB = 75, NO PAIN OR DISCOMFORT,LFA G#20, CONTINENT WITH BATHROOM PRIVILEGE , NO SIGN OF RESPIRATORY DISTRESS UPON RECEIVING FROM PREVIOUS SHIFT. ALL HER QUERY REGARDING HER MEDICATION WERE ANSWERED BY PREVIOUS RN(OUTGOING SHIFT). KEPT ON CLOSE WATCH.
[2019-09-02 20:00] VITALS: BP_SYST 132; BP_SYST 170; BP_DIAS 66; BP_DIAS 76
--- NOTE | 2019-09-02 20:42 | NUR ---
RN NOTES: PATIENT VERBALIZED SHE HAD SLIGHT SOB AND SHE WANT HER VENTOLIN INHALATION, UPON ASSESSMENT NO WHEEZING NOTED, SHE LOOKS A BIT WORRIED HER IS LEAVING, RT CAME AND HHN PRN GIVEN KEPT COMFORTABLE IN BED.
[2019-09-02] MEDS: ATORVASTATIN 10 MG TABLET PO SCH (21:29)
--- NOTE | 2019-09-02 21:39 | NUR ---
RN NOTES: MORE RELAX NOW, NO SOB, REST ASSURED THAT SHE WILL BE MONITORED CLOSELY AND WILL BE CHECKING HER AT FREQUENT INTERVALS, SHE WAS DELIGHTFUL AND FEEL SAFETY, KEPT COMFORTABLE IN BED, CALL LIGHT WITHIN EASY REACH.
[2019-09-03] VITALS (46 sets, daily range): BP systolic 83–165; BP diastolic 30–118
--- NOTE | 2019-09-03 | NUR ---
RN NOTES: ABLE TO SLEEP AND REST, KEEP ON HIGH FOWLERS POSITION, CALL LIGHT WITHIN EASY REACH. ON CLOSE WATCH.
--- NOTE | 2019-09-03 02:20 | NUR ---
RT At 0154 code blue was called and pt had ROSC, pt was then intubated at 0202 with a 7.5 ET tube secured at 23cm at the lip line. Positive CO2 color change, equal bilateral breath sounds and chest rise. Pt was transferred to ICU and placed on mechanical ventilation with noted settings per Dr. Webb. Dr. Webb ordered low VT due to pt asthmatic status. Addendum: 09/03/19 at 0255 by BREEZY BOSTON RT Amended: Links added.
[2019-09-03] MEDS ORDERED: DILTIAZEM HCL IV 125 MG in IV NS 0.9% 100 ML IV PRN (02:30)
[2019-09-03] MEDS ORDERED: AMIODARONE 150 MG/3 ML VIAL IV ONE (02:32)
[2019-09-03 02:38] LABS: ABG BASE EXCESS -9.6 mmol/L; ABG OXYGEN SATURATION 99.4 % (92.0-98.5); ABG PCO2 58.6 mmHg (35.0-45.0); ABG PH 7.146 (7.350-7.450); ABG PO2 445.8 mmHg (75.0-100.0); AaDO2 208.6 mmHg; COHb 0.3 % (0.5-1.5); MetHb 0.7 % (0.0-1.5); O2Hb 98.4 % (94.0-97.0); SITE, ABG Right Radial
[2019-09-03] MEDS: PROPOFOL 100 ML IV PRN ×4 (02:40→23:26)
[2019-09-03 02:51] LABS: BASOPHILS % (AUTO) 0.2 % (0.0-2.0); EOSINOPHILS % (AUTO) 0.1 % (0.0-6.0); HEMATOCRIT 38 % (33-45); HEMOGLOBIN 12.2 g/dL (11.5-14.8); LYMPHOCYTES # (AUTO) 2.8 /CMM (0.8-4.8); LYMPHOCYTES % (AUTO) 13.2 % (20.0-44.0); MEAN CORPUSCULAR HGB CONC 32 g/dl (31.0-36.0); MEAN CORPUSCULAR VOLUME 85 fL (82-100); MONOCYTES # (AUTO) 1.3 /CMM (0.1-1.30); NEUTROPHILS # (AUTO) 17.3 /CMM (1.8-8.9); NEUTROPHILS % (AUTO) 80.5 % (43.0-81.0); PLATELET COUNT (AUTO) 473 /CMM (150-450); RED BLOOD CELL COUNT(AUTO) 4.52 MIL/uL (4.0-5.2); WHITE BLOOD COUNT (AUTO) 21.5 K/uL (4.3-11.0)
[2019-09-03 02:52] LABS: CALCIUM, SERUM 8.8 mg/dL (8.5-10.1); CARBON DIOXIDE 22 mmol/L (21-32); CHLORIDE 105 mmol/L (98-107); CREATININE 1.1 mg/dL (0.6-1.3); GLUCOSE 258 mg/dL (74-106); MAGNESIUM 2.1 mg/dL (1.8-2.4); POTASSIUM 4.9 mmol/L (3.5-5.1); SODIUM SERUM 137 mmol/L (136-145); UREA NITROGEN, BLOOD 24 mg/dL (7-18)
[2019-09-03] MEDS ORDERED: AMIODARONE 900 MG in IV D5W 482 ML IV PRN (03:00)
[2019-09-03] MEDS ORDERED: AMIODARONE 150 MG in IV D5W 100 ML IV ONE (03:00)
--- NOTE | 2019-09-03 03:15 | NUR ---
RN NOTES: 0150- PATIENT CALLED FOR ASSISTANCE, RN(CHARGE NURSE) WITH ANOTHER RN CHECK ON HER, INITIALLY SHE WAS STILL CALM AND ABLE TO VERBALIZED THAT SHE CANNOT BREATH, THEN ALL OF A SUDDEN SHE TURNED CYANOTIC, HER ENTIRE FACE WAS BLUE WELL HER FINGER NAILS, CN CALLED FOR HELP AND EVERYONE CAME IN FOR HELP , PULSELESS(UNABLE TO PALPATE AND DETERMINE BRACHIAL/CAROTID PULSE) AND UNABLE TO SEE VISIBLE BREATHING , IMMEDIATELY, CPR STARTED WITH CHEST COMPRESSION, 0153-IMMEDIATELY, CPR STARTED WITH CHEST COMPRESSION. 0154-CODE BLUE WAS CALLED 0155-CODE BLUE TEAM ARRIVED HEADED BY DR.DANIEL LIANG, ALONG WITH ER, RT AND ICU STAFF. HR-125 V-TACH - ACCUCHECK-166 0156-RATE 138 - V-TACH- 0157-RATE 127- V-TACH 0159-RATE 135 V-TACH 0200- RATE 140 V-TACH 0202 PATIENT WAS INTUBATED SIZE-7.5 AT 23CM- ORDERED FOR STAT -XRAY AND TRANSFER PATIENT TO ICU, CONFIRMED WITH ED(ICU/CN) TO TRANSFER IN ROOM 256 0205- NOTIFIED ABOUT PATIENT SUDDEN CARDIAC ARREST, ALL OF A SUDDEN SHE TURNED CYANOTIC, CPR INITIATED , CODE BLUE WAS CALLED AND PATIENT WAS INTUBATED AND WILL BE TRANSFERRED TO ICU. 0215- PATIENT WAS TRANSFERRED TO ICU, ENDORSED TO ED(CN) AND GIVEN INFORMATION AND MEDICAL HISTORY OF PATIENT ALONG WITH HER BELONGINGS. 0224- WHILE IN ICU INSTRUCTED TO CALL AGAIN DR. NOVA, NOTIFIED THAT PATIENT WAS ALREADY IN ICU AND IN V-TACH HR-224 AND IN CRITICAL CONDITION, STARTED TO GIVE ORDERS VIA PHONE WAS THAN PHONE GIVEN TO ICU NURSE FOR FURTHER ORDERS. 0230-WHILE IN ICU OSMEL WAS NOTIFIED OF PATIENT SUDDEN CARDIAC ARREST AND SHE IS IN CRITICAL CONDITION, HE SAID HE WILL BE COMING IN ICU. Addendum: 09/03/19 at 0413 by EDMOND MASON RN ADDITIONAL NOTES FOR 0155: RN PRINT AND PATTERN DESIGNER CAME ALONG WITH SAMIR BOB.
[2019-09-03 04:02] LABS: ABG BASE EXCESS -4.5 mmol/L; ABG OXYGEN SATURATION 99.5 % (92.0-98.5); ABG PO2 460.9 mmHg (75.0-100.0); AaDO2 211.1 mmHg; MetHb 0.2 % (0.0-1.5); O2Hb 99.3 % (94.0-97.0); PEEP,BG 5 cm H2O; SITE, ABG Right Radial; VT, ABG 400 mL
--- NOTE | 2019-09-03 06:23 | NUR ---
MINE CAR DISPATCHER PT WAS TRANSFERRED FROM ROOM 117-1, AFTER CODE BLUE & STAT INTUBATION. /SEE CODE BLUE CHARTING/. PT IS ON VENTILATOR -AC-18, TV-400, FIO2-50%, PEEP+5. PT IS SEDATED WITH PROPOFOL DRIP. PT IS ALSO ON AMIODARONE DRIP D/T ATRIAL FIB. WITH RVR. F/C WAS INSERTED, ALSO STARTED SECOND IV ACCESS ON RIGHT F/A. SOFT WRIST RESTRAINTS ON. VSS, AFEBRILE, SCOPE-A.FIB. WILL CONTINUE CLOSED MONITORING.
--- NOTE | 2019-09-03 08:07 | NUR ---
RN NOTES 1468-RECEIVED PATIENT FROM RN. DR TYLER CARDIOVERTED PATIENT AFTER CONSENTED BY PHONE. PATIENT CONVERTED TO SINUS AFTER CARDIOVERSION.CONTINUE TO MONITOR PATIENT STATUS
[2019-09-03] MEDS ORDERED: ATENOLOL 25 MG TABLET PO SCH (09:00)
[2019-09-03] MEDS ORDERED: CEFTRIAXONE 1 G in IV D5W 50 ML IV SCH (09:00)
[2019-09-03] MEDS ORDERED: FLECAINIDE ACETATE (100 MG) 100 MG TABLET PO SCH (09:00)
[2019-09-03] MEDS: ASPIRIN EC 81 MG TABLET.DR PO SCH (09:08)
[2019-09-03] MEDS: cetrizine 10 MG TABLET PO SCH (09:08)
[2019-09-03] MEDS: methylPREDNISolone SOD SUCC 40 MG/ML VIAL IV SCH ×3 (09:08→17:12)
[2019-09-03] MEDS: PAROXETINE HCL 10 MG TABLET PO SCH (09:08)
[2019-09-03] MEDS: SPIRONOLACTONE 25 MG TABLET PO SCH (09:08)
[2019-09-03] MEDS: MONTELUKAST SODIUM (10MG) 10 MG TABLET PO SCH (09:09)
[2019-09-03] MEDS ORDERED: AZITHROMYCIN 250 MG TABLET PO SCH (10:00)
[2019-09-03] MEDS ORDERED: SUCCINYLCHOLINE CHLORIDE 20 MG/ML VIAL IV ONE (10:17)
[2019-09-03] MEDS ORDERED: ETOMIDATE 2 MG/ML VIAL IV ONE (10:17)
--- NOTE | 2019-09-03 10:39 | NUR ---
rn notes 1030-patient remains on amiodarone drip at 1 mg.patient family at bedside- and daughter.patient appears comfortable. HAWA Willams made rounds, discussed with family about patient status.natasha cooper monitor status
[2019-09-03] MEDS ORDERED: AZTREONAM 1 G in IV NS 0.9% 100 ML IV SCH (11:00)
[2019-09-03] MEDS ORDERED: DEXTROSE 50%-WATER 50 ML DISP.SYRIN IV PRN (11:30)
--- NOTE | 2019-09-03 11:44 | NUR ---
rn notes 1130-patient follows simple commands. denies pain. family at bedside.
[2019-09-03] MEDS: PANTOPRAZOLE 40 MG VIAL IV SCH (11:51)
[2019-09-03] MEDS ORDERED: VANCOMYCIN 1.75 GM in IV D5W 500 ML IV ONE (12:00)
[2019-09-03] MEDS ORDERED: FEE PK DOSING 1 MIN EA MC ONE (12:10)
[2019-09-03] MEDS: MEROPENEM 1 G in IV NS 0.9% 100 ML IV SCH ×2 (12:19→23:45)
[2019-09-03] MEDS: BLOOD SUGAR DIAGNOSTIC 1 EACH STRIP IN SCH ×3 (12:41→23:45)
[2019-09-03] MEDS: RIVAROXABAN 10 MG TABLET PO SCH (13:24)
--- NOTE | 2019-09-03 14:26 | NUR ---
rn notes patient coached to relax when she is being cleansed repositioned.remains on sinus rhythm.
[2019-09-03] MEDS: INSULIN REGULAR, HUMAN 100 UNIT/ML 3 ML VIAL SQ PRN ×2 (17:23→23:49)
--- NOTE | 2019-09-03 18:30 | NUR ---
rn notes 1600-patient appears comfortable. no sign of pain. at bedside. patient remains on amiodarone drip @ 0.5 mcg/min; propofol drip at 20 mcg/kg/min. explained to patient procedures to be done. 1800-on sinus rhythm, coached her to relax.
[2019-09-03] MEDS: ATORVASTATIN 10 MG TABLET PO SCH (22:06)
[2019-09-04] VITALS (49 sets, daily range): BP systolic 103–153; BP diastolic 48–92
[2019-09-04 04:33] LABS: BASOPHILS # (AUTO) 0.1 /CMM (0.0-0.2); BASOPHILS % (AUTO) 0.3 % (0.0-2.0); HEMATOCRIT 36 % (33-45); HEMOGLOBIN 11.7 g/dL (11.5-14.8); LYMPHOCYTES # (AUTO) 0.8 /CMM (0.8-4.8); LYMPHOCYTES % (AUTO) 4.1 % (20.0-44.0); MEAN CORPUSCULAR HGB CONC 33 g/dl (31.0-36.0); MEAN CORPUSCULAR VOLUME 84 fL (82-100); MONOCYTES # (AUTO) 1.8 /CMM (0.1-1.30); MONOCYTES % (AUTO) 8.8 % (2.0-12.0); NEUTROPHILS # (AUTO) 17.6 /CMM (1.8-8.9); NEUTROPHILS % (AUTO) 86.8 % (43.0-81.0); PLATELET COUNT (AUTO) 369 /CMM (150-450); RED BLOOD CELL COUNT(AUTO) 4.28 MIL/uL (4.0-5.2); WHITE BLOOD COUNT (AUTO) 20.3 K/uL (4.3-11.0)
[2019-09-04 04:49] LABS: CALCIUM, SERUM 9.1 mg/dL (8.5-10.1); CARBON DIOXIDE 27 mmol/L (21-32); CHLORIDE 108 mmol/L (98-107); CREATININE 0.9 mg/dL (0.6-1.3); GLUCOSE 148 mg/dL (74-106); POTASSIUM 4.5 mmol/L (3.5-5.1); SODIUM SERUM 142 mmol/L (136-145); UREA NITROGEN, BLOOD 21 mg/dL (7-18)
[2019-09-04] MEDS: BLOOD SUGAR DIAGNOSTIC 1 EACH STRIP IN SCH ×3 (06:20→17:43)
[2019-09-04] MEDS: INSULIN REGULAR, HUMAN 100 UNIT/ML 3 ML VIAL SQ PRN ×2 (06:23→17:42)
[2019-09-04] MEDS: LORAZEPAM INJ 2 MG/ML VIAL IV PRN (08:13)
[2019-09-04] MEDS: PROPOFOL 100 ML IV PRN ×3 (08:22→23:55)
[2019-09-04] MEDS: PANTOPRAZOLE 40 MG VIAL IV SCH (08:23)
[2019-09-04] MEDS: methylPREDNISolone SOD SUCC 40 MG/ML VIAL IV SCH ×3 (08:23→17:42)
[2019-09-04] MEDS: ASPIRIN EC 81 MG TABLET.DR PO SCH (08:23)
[2019-09-04] MEDS: MONTELUKAST SODIUM (10MG) 10 MG TABLET PO SCH (08:23)
[2019-09-04] MEDS: PAROXETINE HCL 10 MG TABLET PO SCH (08:24)
[2019-09-04] MEDS: cetrizine 10 MG TABLET PO SCH (08:24)
[2019-09-04] MEDS: SPIRONOLACTONE 25 MG TABLET PO SCH (08:26)
[2019-09-04] MEDS: MEROPENEM 1 G in IV NS 0.9% 100 ML IV SCH (11:35)
--- NOTE | 2019-09-04 11:46 | NUR ---
RN NOTES 0730-RECEIVED PATIENT FROM RN. PATIENT REMAINS ON AC MODE. ON SINUS RHYTHM.OFF AMIO DRIP.PATIENT OPENS EYES TO VOICE, FOLLOWS SIMPLE COMMANDS. 0900-PATIENT STARTED TO GET RESTLESS ( ANXIOUS), OFFERED PAIN OR ANXIOLYTIC, SHE PREFERRED ANXIOLYTIC.DR CHONG, COVERING FOR DR NICHOLAS, DR ADAMES, COVERING FOR DR TYLER MADE ROUNDS. PATIENT FAMILY VISITS AND THEY WERE UPDATED OF PATIENT STATUS. 1130-HAWA DAN MADE ROUNDS AND HE UPDATED PATIENT FAMILY, FAMILY QUESTIONS ANSWERED BY NI.
[2019-09-04] MEDS: RIVAROXABAN 10 MG TABLET PO SCH (12:34)
[2019-09-04] MEDS: MORPHINE SULFATE INJ 2 MG/ML DISP.SYRIN IV PRN (12:52)
[2019-09-04] MEDS: VANCOMYCIN 1.25 GM in IV D5W 250 ML IV SCH (13:43)
--- NOTE | 2019-09-04 14:23 | NUR ---
RN NOTES 1400-PATIENT MEDICATED FOR PAIN BEFORE CLEANING HER. PATIENT COMMUNICATED SHE WANT TO BE ON HER BACK ALL TIMES, EXPLAINED TO HER THE IMPORTANCE OF TURING HER TO SIDES FOR HER SKIN CONDITION.
--- NOTE | 2019-09-04 19:13 | NUR ---
RN NOTES 1630-COMFORTABLE. REMAINS ON SINUS RHYTHM. BP WITHIN RANGE. AT BEDSIDE. 1830-PATIENT SAFETY MAINTAINED.POSITIONED FOR COMFORT AND SAFETY
[2019-09-04] MEDS: ATORVASTATIN 10 MG TABLET PO SCH (22:06)
[2019-09-05] VITALS (41 sets, daily range): BP systolic 108–178; BP diastolic 57–89
[2019-09-05] MEDS: MEROPENEM 1 G in IV NS 0.9% 100 ML IV SCH (00:01)
[2019-09-05] MEDS: BLOOD SUGAR DIAGNOSTIC 1 EACH STRIP IN SCH ×5 (00:11→23:56)
[2019-09-05] MEDS: INSULIN REGULAR, HUMAN 100 UNIT/ML 3 ML VIAL SQ PRN ×5 (00:15→23:56)
[2019-09-05] MEDS: MORPHINE SULFATE INJ 2 MG/ML DISP.SYRIN IV PRN (03:40)
[2019-09-05 05:13] LABS: BASOPHILS % (AUTO) 0.3 % (0.0-2.0); HEMATOCRIT 36 % (33-45); HEMOGLOBIN 11.7 g/dL (11.5-14.8); LYMPHOCYTES # (AUTO) 0.7 /CMM (0.8-4.8); LYMPHOCYTES % (AUTO) 4.2 % (20.0-44.0); MEAN CORPUSCULAR HGB CONC 32 g/dl (31.0-36.0); MEAN CORPUSCULAR VOLUME 85 fL (82-100); MONOCYTES # (AUTO) 1.5 /CMM (0.1-1.30); MONOCYTES % (AUTO) 8.8 % (2.0-12.0); NEUTROPHILS # (AUTO) 14.4 /CMM (1.8-8.9); NEUTROPHILS % (AUTO) 86.7 % (43.0-81.0); PLATELET COUNT (AUTO) 355 /CMM (150-450); RED BLOOD CELL COUNT(AUTO) 4.31 MIL/uL (4.0-5.2); WHITE BLOOD COUNT (AUTO) 16.6 K/uL (4.3-11.0)
[2019-09-05 05:18] LABS: CALCIUM, SERUM 9.3 mg/dL (8.5-10.1); CREATININE 0.7 mg/dL (0.6-1.3); POTASSIUM 4.5 mmol/L (3.5-5.1)
[2019-09-05] MEDS ORDERED: JEVITY 1.2 CAL 1,000 ML BOTTLE GT PRN (07:00)
--- NOTE | 2019-09-05 07:15 | NUR ---
RN INITIAL NOTES RECEIVED PT INTUBATED, ON VENT. NO RESPIRATORY DISTRESS NOTED. NO SOB NOTED. NO SIGNS OF PAIN NOTED. PT SEDATED, ON DIPRIVAN AT 20MCG/KG/MIN. WILL TITRATE ACCORDINGLY. SINUS RHYTHM ON MONITOR. LEFT NARE NGT IN PLACE. GTF TOLERATING WELL. IV LINES IN PLACE. FC IN PLACE. NO HEMATURIA NOTED. PT REPOSITIONED. FOR WEANING TRIAL TODAY. WILL MONITOR.
[2019-09-05] MEDS: PROPOFOL 100 ML IV PRN (07:17)
[2019-09-05] MEDS: ASPIRIN EC 81 MG TABLET.DR PO SCH (08:32)
[2019-09-05] MEDS: MONTELUKAST SODIUM (10MG) 10 MG TABLET PO SCH (08:32)
[2019-09-05] MEDS: methylPREDNISolone SOD SUCC 40 MG/ML VIAL IV SCH ×3 (08:32→16:53)
[2019-09-05] MEDS: cetrizine 10 MG TABLET PO SCH (08:33)
[2019-09-05] MEDS: SPIRONOLACTONE 25 MG TABLET PO SCH (08:33)
[2019-09-05] MEDS: PAROXETINE HCL 10 MG TABLET PO SCH (08:33)
[2019-09-05] MEDS ORDERED: DC PROPOFOL WHEN EXTUBATED XX PRN (09:00)
[2019-09-05] MEDS ORDERED: AMIODARONE 150 MG/3 ML VIAL IV ONE (09:36)
[2019-09-05] MEDS ORDERED: ADENOSINE 6 MG/2 ML VIAL ONE (09:36)
[2019-09-05] MEDS ORDERED: Magnesium 1 GM/2 ML VIAL ONE (09:36)
[2019-09-05] MEDS ORDERED: METOPROLOL TARTRATE INJ 5 MG/5 ML AMPUL ONE (09:36)
--- NOTE | 2019-09-05 09:52 | NUR ---
RN NOTES PT ON SIMV MODE. TOLERATING WELL. PT A/O, FOLLOWS COMMANDS. PT COMFORTABLE. GIVE REPORT TO KAITLIN PHAM. TOOK OVER PT'S CARE.
--- NOTE | 2019-09-05 09:55 | NUR ---
RN NOTES RECEIVED PT ON BED, PT ON SIMV MODE. TOLERATING WELL. O2 SAT WNL, NO DISTRESS NOTED, SUPPORTIVE FAMILY AT THE BEDSIDE, PT A/O, FOLLOWS COMMANDS. CONTINUE TO MONITOR.
[2019-09-05] MEDS: PANTOPRAZOLE 40 MG VIAL IV SCH (10:12)
[2019-09-05 10:17] LABS: ABG BASE EXCESS 3.2 mmol/L; ABG OXYGEN SATURATION 98.4 % (92.0-98.5); ABG PCO2 38.3 mmHg (35.0-45.0); ABG PH 7.466 (7.350-7.450); ABG PO2 143.9 mmHg (75.0-100.0); AaDO2 97.3 mmHg; COHb 0.3 % (0.5-1.5); MetHb 0.5 % (0.0-1.5); O2Hb 97.6 % (94.0-97.0); PEEP,BG 5 cm H2O; SITE, ABG Left Radial; VT, ABG 400 mL
[2019-09-05] MEDS: LEVALBUTEROL HCL NEB 1.25 MG/0.5 ML VIAL.NEB IH SCH ×3 (10:24→19:38)
--- NOTE | 2019-09-05 10:30 | NUR ---
RN NOTES PT EXTUBATED PER DR NICHOLAS ORDER , VSS STABLE , O2 SAT WNL, PT ON 4L O2 N/C ,NO DISTRESS NOTED CONTINUE TO MONITOR.
[2019-09-05] MEDS ORDERED: CEFEPIME 1 GM in IV D5W 50 ML IV SCH (11:00)
[2019-09-05] MEDS: VANCOMYCIN 1.25 GM in IV D5W 250 ML IV SCH (11:21)
[2019-09-05] MEDS: IPRATROPIUM NEB FS 0.5 MG/2.5 ML AMPUL.NEB NEB SCH ×3 (11:26→19:38)
[2019-09-05] MEDS ORDERED: IPRATROPIUM NEB FS 0.5 MG/2.5 ML AMPUL.NEB NEB SCH (11:30)
[2019-09-05] MEDS: RIVAROXABAN 10 MG TABLET PO SCH (12:16)
[2019-09-05] MEDS: ACETAMINOPHEN 325 MG TABLET PO PRN ×2 (12:16→21:14)
--- NOTE | 2019-09-05 12:30 | NUR ---
RN NOTES PT STABLE, O2 SAT WNL, CONTINUE TO MONITOR .
--- NOTE | 2019-09-05 14:00 | NUR ---
RN NOTES PT TOLERATING FULL LIQUID DIET WELL, CONTINUE NGT FEEDING PER RABIA LAW NP .
--- NOTE | 2019-09-05 17:11 | NUR ---
RT END OF THE SHIFT REPORT, PT. 88 Y OLD MALE REMAIN ORALLY INTUBATED ETT#7.5 @ 24 CM LIP LINE WITH NOTED VENT SETTINGS, BILATERALLY CHEST RISE NOTED, B/S BILATERALLY RALES AND SUX'S FOR MOD. AMT OF YELLOW SECRETIONS, PT. STABLE VENT PLUGGED INTO RED OUT LET AND HME CHANGED, HOSPICE REGISTERED NURSE DONE. PT. AWAKE AND RESPONSIVE. @0850 PLACED ON SIMV MODE PER DR. NICHOLAS ORDER AT THE BEDSIDE. POST ABG DONE @1030 PT. EXTUBATED AND PLACED ON 4L/MIN N/C TX'S GIVEN HERNAN. WELL. NO ADVERSE REACTION NOTED. CONTINUE TO MONITOR CLOSELY AND REPORT WILL PASS TO PM SHIFT. Addendum: 09/05/19 at 1713 by JUVENCIO MARADIAGA RT Amended: Links added. Addendum: 09/05/19 at 1717 by JUVENCIO MARADIAGA RT CORRECTION ((( PT. 78 Y OLD FEMALE )))
--- NOTE | 2019-09-05 18:28 | NUR ---
RN NOTES PT ON 3 -4 L O2 N/C , O2 SAT WNL , NO RESPIRATORY DISTRESS NOTED, TOLERATING TF WELL, VSS STABLE, WILL ENDORSE TO SERVICE CENTER SUPERVISOR NURSE FOR CONTINUITY OF CARE
--- NOTE | 2019-09-05 20:00 | NUR ---
REGIONAL GUIDE OPENING NOTES RECEIVED REPORT FROM KORY MADRIGAL. PATIENT A/A/O X3, ABLE TO VERBALIZE NEEDS. BREATHING EVEN & UNLABORED, TOLERATING O2 @ 3LPM VIA NC. DENIES ANY SOB OR DIFFICULTY BREATHING @ THIS TIME. ON TELE W/ SINUS RHYTHM, HR 80S. LEFT & RIGHT FOREARM IV #20 INTACT & PATENT W/ DRESSING CDI, BOTH SALINE LOCKED. LEFT NARE NGT IN PLACE & PATENT W/ GTF NEPRO RUNNING @ 30 ML/HR. WHYTE CATH DRAINING YELLOW URINE. DENIES ANY PAIN OR DISCOMFORT @ THIS TIME. BUT C/O SOME THROAT SORENESS S/P EXTUBATION IN AM. TURNED & REPOSITIONED FOR COMFORT & HOB ELEVATED FOR ASPIRATION PRECAUTIONS. WILL CONTINUE TO MONITOR CLOSELY.
--- NOTE | 2019-09-05 20:56 | NUR ---
BALL FRINGE MACHINE OPERATOR NOTES PATIENT ACCIDENTALLY PULLED ON NGT. NGT ADVANCED A LITTLE FURTHER & PLACEMENT VERIFIED W/ 2ND RN.
[2019-09-05] MEDS: ATORVASTATIN 10 MG TABLET PO SCH (21:14)
[2019-09-05] MEDS: AMIODARONE HCL 200 MG TABLET PO SCH (21:15)
[2019-09-06] VITALS (29 sets, daily range): BP systolic 126–160; BP diastolic 55–87
[2019-09-06] MEDS: MORPHINE SULFATE INJ 2 MG/ML DISP.SYRIN IV PRN ×2 (00:31→23:48)
[2019-09-06] MEDS: LEVALBUTEROL HCL NEB 1.25 MG/0.5 ML VIAL.NEB IH SCH ×4 (01:30→19:52)
[2019-09-06] MEDS: ACETAMINOPHEN 325 MG TABLET PO PRN (04:14)
[2019-09-06 04:25] LABS: BASOPHILS # (AUTO) 0.1 /CMM (0.0-0.2); BASOPHILS % (AUTO) 0.2 % (0.0-2.0); HEMATOCRIT 32 % (33-45); HEMOGLOBIN 10.3 g/dL (11.5-14.8); LYMPHOCYTES # (AUTO) 0.8 /CMM (0.8-4.8); LYMPHOCYTES % (AUTO) 3.7 % (20.0-44.0); MEAN CORPUSCULAR HGB CONC 33 g/dl (31.0-36.0); MEAN CORPUSCULAR VOLUME 83 fL (82-100); MONOCYTES # (AUTO) 2.3 /CMM (0.1-1.30); MONOCYTES % (AUTO) 10.3 % (2.0-12.0); NEUTROPHILS # (AUTO) 19.4 /CMM (1.8-8.9); NEUTROPHILS % (AUTO) 85.8 % (43.0-81.0); PLATELET COUNT (AUTO) 363 /CMM (150-450); WHITE BLOOD COUNT (AUTO) 22.6 K/uL (4.3-11.0)
[2019-09-06] MEDS: ALBUTEROL FS 2.5 MG/3 ML VIAL.NEB NEB PRN (04:35)
[2019-09-06 04:42] LABS: ALBUMIN 2.4 g/dL (3.4-5.0); BILIRUBIN,TOTAL 0.5 mg/dL (0.2-1.0); CALCIUM, SERUM 8.6 mg/dL (8.5-10.1); CREATININE 0.7 mg/dL (0.6-1.3); MAGNESIUM 2.6 mg/dL (1.8-2.4); PHOSPHORUS 2.1 mg/dL (2.5-4.9); POTASSIUM 4.9 mmol/L (3.5-5.1); TOTAL PROTEIN, SERUM 5.2 g/dL (6.4-8.2)
--- NOTE | 2019-09-06 05:36 | NUR ---
SPORTS EQUIPMENT SUPERVISOR NOTES PATIENT REFUSED BED BATH D/T PAIN. PER PATIENT, WANTS TO TO WAIT UNTIL MORNING. WILL OFFER AGAIN BEFORE END OF SHIFT.
[2019-09-06] MEDS: INSULIN REGULAR, HUMAN 100 UNIT/ML 3 ML VIAL SQ PRN ×3 (06:40→17:00)
[2019-09-06] MEDS: BLOOD SUGAR DIAGNOSTIC 1 EACH STRIP IN SCH ×4 (06:41→23:57)
--- NOTE | 2019-09-06 07:00 | NUR ---
RN NOTES RECEIVED PT ON BED ,A/Ox4, ABLE TO VERBALIZE NEEDS. BREATHING EVEN & UNLABORED, TOLERATING O2 @ 3LPM VIA NC. DENIES ANY SOB OR DIFFICULTY BREATHING @ THIS TIME. ON TELE SINUS RHYTHM, HR 80'S . RIGHT FOREARM IV #20 INTACT & PATENT W/ DRESSING CDI, LEFT NARE NGT IN PLACE & PATENT W/ GTF NEPRO RUNNING @ 30 ML/HR. HOB ELEVATED WHYTE CATH DRAINING TO GRAVITY, DENIES ANY PAIN OR DISCOMFORT @ THIS TIME. WILL CONTINUE TO MONITOR CLOSELY.
--- NOTE | 2019-09-06 07:19 | NUR ---
PANMAN CLOSING NOTES PATIENT RESTING COMFORTABLY IN BED. NO SIGNIFICANT EVENTS OVERNIGHT. STILL REFUSED BED BATH BUT AGREED TO BE TURNED & REPOSITIONED. WILL ENDORSE HEMANT TO AM NURSE.
--- NOTE | 2019-09-06 08:00 | NUR ---
RN NOTES NGT AND TUBE FEEDING D/RYANN PER DR NICHOLAS ORDER , PT TOLERATING FULL LIQUID DIET, CONTINUE TO MONITOR.
[2019-09-06] MEDS: IPRATROPIUM NEB FS 0.5 MG/2.5 ML AMPUL.NEB NEB SCH ×3 (08:01→19:52)
[2019-09-06] MEDS: MONTELUKAST SODIUM (10MG) 10 MG TABLET PO SCH (08:30)
[2019-09-06] MEDS: cetrizine 10 MG TABLET PO SCH (08:31)
[2019-09-06] MEDS: PAROXETINE HCL 10 MG TABLET PO SCH (08:31)
[2019-09-06] MEDS: methylPREDNISolone SOD SUCC 40 MG/ML VIAL IV SCH ×3 (08:31→16:41)
[2019-09-06] MEDS: ASPIRIN EC 81 MG TABLET.DR PO SCH (08:31)
[2019-09-06] MEDS: SPIRONOLACTONE 25 MG TABLET PO SCH (08:31)
[2019-09-06] MEDS: AMIODARONE HCL 200 MG TABLET PO SCH ×2 (08:32→21:29)
--- NOTE | 2019-09-06 08:33 | NUR ---
WOUND CARE CONSULT: PT PRESENTS WITH SKIN TEARS AND BRUISING TO RT ARM AND HAND, PRESENT ON ADMISSION. PT REFUSED TO TURN FOR FULL SKIN ASSESSMENT. PT IS CONTINENT AT THIS TIME WITH ISABELL CATH. RECOMMENDATIONS MADE FOR SKIN PROTECTION AND WOUND CARE. DISCUSSED WITH NURSING STAFF. CURRENT FOREST SCORE IS 15. WILL SEE PRN. IRIZARRY IN AGREEMENT WITH PLAN OF CARE. [facility]. Addendum: 09/06/19 at 0835 by FELICITA HARMON WNDNU Amended: Links added.
[2019-09-06] MEDS: PANTOPRAZOLE 40 MG VIAL IV SCH (10:43)
[2019-09-06] MEDS ORDERED: K PHOS NEUTRAL 250 MG TABLET PO ONE (11:30)
[2019-09-06] MEDS: RIVAROXABAN 10 MG TABLET PO SCH (12:47)
--- NOTE | 2019-09-06 13:00 | NUR ---
RN NOTES NO VANCO TROUGH RESULTED YET , LAB NOTIFED.
--- NOTE | 2019-09-06 13:36 | NUR ---
RT PT SLEEPING. TREATMENT NOT GIVEN. NO SOB NOTED.
[2019-09-06] MEDS: VANCOMYCIN 1.25 GM in IV D5W 250 ML IV SCH (13:58)
--- NOTE | 2019-09-06 18:30 | NUR ---
RN NOTES PT TRANSFERRED TO ROOM 117-1 JEANNIE STATUS , VIA ACLS PROTOCOL IN STABLE CONDITION. PT TOOK BELONGINGS WITH HIM .
--- NOTE | 2019-09-06 19:35 | NUR ---
RN NOTES, RECEIVED PATIENT IN BED, AWAKE A/O X4 ABLE TO VERBALIZE NEEDS AND CONCERNS, BREATHING EVEN & UNLABORED, NO SOB/ACUTE DISTRESS NOTED AT THIS TIME, WITH OPTIMAL O2 SAT LEVEL, ON 3LPM VIA NC, S/P EXTUBATION, SINUS RHYTHM, WITH IN HR 80S, RIGHT FOREARM IV #20 INTACT & PATENT, WHYTE CATH DRAINING TO GRAVITY, AT BEDSIDE, WELL REPOSITIONED, CALL LIGT W/I REACH, S/R BED OF BED IN PLACED, WILL CONTINUE TO MONITOR CLOSELY.,
[2019-09-06] MEDS: ATORVASTATIN 10 MG TABLET PO SCH (21:30)
[2019-09-07] VITALS (8 sets, daily range): BP systolic 96–156; BP diastolic 59–152
[2019-09-07] MEDS: INSULIN REGULAR, HUMAN 100 UNIT/ML 3 ML VIAL SQ PRN ×5 (00:01→23:41)
[2019-09-07] MEDS: VANCOMYCIN 1.25 GM in IV D5W 250 ML IV SCH ×2 (00:27→12:12)
[2019-09-07] MEDS: LEVALBUTEROL HCL NEB 1.25 MG/0.5 ML VIAL.NEB IH SCH ×4 (01:10→19:27)
[2019-09-07] MEDS: MORPHINE SULFATE INJ 2 MG/ML DISP.SYRIN IV PRN ×2 (05:00→23:23)
[2019-09-07] MEDS: BLOOD SUGAR DIAGNOSTIC 1 EACH STRIP IN SCH ×4 (05:26→23:39)
--- NOTE | 2019-09-07 06:46 | NUR ---
RN NOTES, PATIENT IN BED, AWAKE A/O X4 ABLE TO VERBALIZE NEEDS AND CONCERNS, BREATHING EVEN & UNLABORED, NO SOB/ACUTE DISTRESS NOTED AT THIS TIME, WITH OPTIMAL O2 SAT LEVEL, ON 3LPM VIA NC, S/P EXTUBATION, SINUS RHYTHM, SHE DOESN'T SEEM IN ANY DISTRESS BUT STATES HAVING TROUBLE BREATHING, VS STABLE O2 SAT 96%, CALLED RT 2X TO ADMINISTER BREATHING TREATMENT BY PATIENT REQUEST AND ORDER AT 0730, PATIENT CAN RECEIVED BREATHING TREATMENT ANY TIME, RT AWARE, REPOSITIONED PATIENT, HOB ELEVATED TO EXPAND LUNGS AND FACILITATE BREATHING, OTHERWISE NO SIGNIFICANT CHANGE IN CONDITION DURING THE NIGHT, CALL LIGHT W/I REACH, S/R BED OF BED UP, WILL ENDORSE CONTINUITY OF CARE TO ONCOMING NURSE,
[2019-09-07] MEDS: IPRATROPIUM NEB FS 0.5 MG/2.5 ML AMPUL.NEB NEB SCH ×3 (06:58→19:27)
--- NOTE | 2019-09-07 07:10 | NUR ---
JEANNIE RN OPENING NOTES RECEIVED PT LYING ON BED,ALERT/ORIENTED X3.ON TELE HR IS 73 WITH NSR WITH PVC'S.ON NC 3LPM O2 CONTINUOUSLY,NO SOB AND ACUTE DISTRESS NOTED.ON WHYTE CATHETER WITH CLEAR YELLOW COLOR URINE PRESENT.IV LINE IS ON RIGHT FA G20,SL.,SITE IS CLEAN,DRY AND INTACT.NO INFILTRATION NOTED.SAFETY IS MAINTAINED AT ALL TIMES,CALL LIGHT IS WITHIN REACH.WILL CONTINUE TO MONITOR THE PT CLOSELY.
[2019-09-07 07:17] LABS: BASOPHILS % (AUTO) 0.2 % (0.0-2.0); HEMATOCRIT 29 % (33-45); HEMOGLOBIN 9.8 g/dL (11.5-14.8); LYMPHOCYTES # (AUTO) 0.9 /CMM (0.8-4.8); LYMPHOCYTES % (AUTO) 3.9 % (20.0-44.0); MEAN CORPUSCULAR HGB CONC 33 g/dl (31.0-36.0); MEAN CORPUSCULAR VOLUME 82 fL (82-100); MONOCYTES # (AUTO) 2.7 /CMM (0.1-1.30); MONOCYTES % (AUTO) 11.9 % (2.0-12.0); NEUTROPHILS # (AUTO) 18.8 /CMM (1.8-8.9); PLATELET COUNT (AUTO) 372 /CMM (150-450); RED BLOOD CELL COUNT(AUTO) 3.57 MIL/uL (4.0-5.2); WHITE BLOOD COUNT (AUTO) 22.4 K/uL (4.3-11.0)
--- NOTE | 2019-09-07 07:18 | NUR ---
RT XOPENEX NOT GIVEN. DRUG NOT AVAILABLE. RN NOTIFIED AND AWARE. NO SOB OR SIGNS OF DISTRESS NOTED AT THIS TIME.
[2019-09-07 07:50] LABS: CALCIUM, SERUM 8.5 mg/dL (8.5-10.1); CREATININE 0.6 mg/dL (0.6-1.3); MAGNESIUM 2.2 mg/dL (1.8-2.4); PHOSPHORUS 3.3 mg/dL (2.5-4.9); POTASSIUM 4.7 mmol/L (3.5-5.1)
[2019-09-07] MEDS: PAROXETINE HCL 10 MG TABLET PO SCH (08:14)
[2019-09-07] MEDS: MONTELUKAST SODIUM (10MG) 10 MG TABLET PO SCH (08:14)
[2019-09-07] MEDS: cetrizine 10 MG TABLET PO SCH (08:14)
[2019-09-07] MEDS: SPIRONOLACTONE 25 MG TABLET PO SCH (08:15)
[2019-09-07] MEDS: methylPREDNISolone SOD SUCC 40 MG/ML VIAL IV SCH ×2 (08:15→12:12)
[2019-09-07] MEDS: AMIODARONE HCL 200 MG TABLET PO SCH ×2 (08:15→21:22)
[2019-09-07] MEDS: ASPIRIN EC 81 MG TABLET.DR PO SCH (08:15)
--- NOTE | 2019-09-07 08:56 | NUR ---
WOUND CARE CONSULT: PT SEEN FOR FULL SKIN ASSESSMENT TODAY AND NOTED TO HAVE BLANCHABLE REDNESS TO SACRAL/BUTTOCKS AREA AND AREAS OF BRUISING TO LATERAL CHEST HOFFMAN. PT IS ON ANTICOAGULANTS. RECOMMENDATIONS MADE FOR SKIN PROTECTION. DISCUSSED WITH NURSING STAFF. RT ARM/WRIST DRESSINGS ARE DRY AND INTACT. CONTINUE CURRENT WOUND CARE TREATMENT. PT IS CONTINENT WITH WHYTE CATH. WILL SEE PRN. IRIZARRY IN AGREEMENT WITH PLAN OF CARE. Addendum: 09/07/19 at 0858 by FELICITA HARMON WNDNU Amended: Links added.
[2019-09-07] MEDS: ALBUTEROL FS 2.5 MG/3 ML VIAL.NEB NEB PRN (10:28)
[2019-09-07] MEDS: PANTOPRAZOLE 40 MG VIAL IV SCH (11:04)
[2019-09-07] MEDS: RIVAROXABAN 10 MG TABLET PO SCH (12:14)
--- NOTE | 2019-09-07 18:58 | NUR ---
REGIONAL TRANSPORTATION MANAGER CLOSING NOTES PT IS LYING ON BED,FAMILY IS ATE BEDSIDE.ON NC 3LPM O2,TOLERATING WELL.RESPIRATION IS EVEN AND NONLABORED.IV LINE IS IN PLACE.NO SIGNIFICANT CHANGES NOTED IN THE SHIFT.WILL ENDORSE TO LENS CUTTER RN FOR HEMANT.
--- NOTE | 2019-09-07 19:10 | NUR ---
RN OPENING NOTES: PATIENT AWAKE AND VEREBALLY RESPONSIVE. NO SOB. ON O2 AT 3LPM VIA NC. SITTER AT BEDSIDE. NO PAIN. (R) FA #20 INTACT, PATENT, AND FLUSHING WELL. SALINE LOCKED. SAFETY PRECAUTIONS IMPLEMENTED. BED LOCKED AND IN LOWEST POSITION. CALL LIGHT WITHIN REACH. WILL CONT. TO MONITOR.
[2019-09-07] MEDS: ATORVASTATIN 10 MG TABLET PO SCH (21:21)
[2019-09-07] MEDS ORDERED: GELATIN SPONGE,ABSORBABLE 1 SPONGE SPONGE TP ONE (22:07)
--- NOTE | 2019-09-07 23:02 | NUR ---
2301 DR. STEPHENS WAS NOTIFIED OF PATIENT BLEEDING SKIN TEAR ON RIGHT HAND, MADE HIM AWARE THAT DRESSING WAS CHANGED 3X AND SURGIFOAM WAS APPLIED. NO ORDER AT THIS TIME BUT TO MONITOR.
[2019-09-08] VITALS (7 sets, daily range): BP systolic 133–152; BP diastolic 39–78
[2019-09-08] MEDS: VANCOMYCIN 1.25 GM in IV D5W 250 ML IV SCH ×2 (00:18→12:03)
[2019-09-08] MEDS: LEVALBUTEROL HCL NEB 1.25 MG/0.5 ML VIAL.NEB IH SCH ×4 (01:01→19:44)
[2019-09-08] MEDS: ACETAMINOPHEN 325 MG TABLET PO PRN (02:19)
[2019-09-08] MEDS: BLOOD SUGAR DIAGNOSTIC 1 EACH STRIP IN SCH ×3 (06:25→17:19)
[2019-09-08 06:29] LABS: BASOPHILS # (AUTO) 0.1 /CMM (0.0-0.2); BASOPHILS % (AUTO) 0.2 % (0.0-2.0); EOSINOPHILS % (AUTO) 0.1 % (0.0-6.0); HEMATOCRIT 30 % (33-45); HEMOGLOBIN 9.7 g/dL (11.5-14.8); LYMPHOCYTES # (AUTO) 1.3 /CMM (0.8-4.8); LYMPHOCYTES % (AUTO) 5.1 % (20.0-44.0); MEAN CORPUSCULAR HGB CONC 33 g/dl (31.0-36.0); MEAN CORPUSCULAR VOLUME 83 fL (82-100); MONOCYTES # (AUTO) 2.8 /CMM (0.1-1.30); NEUTROPHILS % (AUTO) 83.6 % (43.0-81.0); PLATELET COUNT (AUTO) 414 /CMM (150-450); RED BLOOD CELL COUNT(AUTO) 3.63 MIL/uL (4.0-5.2); WHITE BLOOD COUNT (AUTO) 25.1 K/uL (4.3-11.0)
[2019-09-08] MEDS ORDERED: LEVALBUTEROL HCL NEB 1.25 MG/0.5 ML VIAL.NEB ONE (06:44)
[2019-09-08 06:46] LABS: CALCIUM, SERUM 8.8 mg/dL (8.5-10.1); CREATININE 0.7 mg/dL (0.6-1.3); MAGNESIUM 2.1 mg/dL (1.8-2.4); PHOSPHORUS 3.7 mg/dL (2.5-4.9); POTASSIUM 4.6 mmol/L (3.5-5.1)
[2019-09-08] MEDS: IPRATROPIUM NEB FS 0.5 MG/2.5 ML AMPUL.NEB NEB SCH ×3 (06:46→19:44)
--- NOTE | 2019-09-08 07:10 | NUR ---
ADULT EDUCATOR OPENING NOTES RECEIVED PT LYING ON BED,ALERT/ORIENTED X3.ON TELE HR IS 72 WITH NSR.ON NC 3LPM O2 CONTINUOUSLY,NO SOB AND ACUTE DISTRESS NOTED.ON WHYTE CATHETER WITH CLEAR YELLOW COLOR URINE PRESENT.IV LINE IS ON RIGHT FA G20,SL.,SITE IS CLEAN,DRY AND INTACT.NO INFILTRATION NOTED.SAFETY IS MAINTAINED AT ALL TIMES,CALL LIGHT IS WITHIN REACH.NOTED WITH ACTIVE BLEEDING ON RIGHT SKIN TEAR ON FOREARM,NIGHT NURSE ENDORSED THAT THE WHARFMASTER NIGHT DR ORDERED TO MONITOR THE BLEEDING AND CONTINUE THE XARELTO TABLET.PT DENIES PAIN AND DISCOMFORT, WILL CONTINUE TO MONITOR THE PT CLOSELY.
--- NOTE | 2019-09-08 07:10 | NUR ---
RN CLOSING NOTES: PATIENT AWAKE AND VERBALLY RESPONSIVE. A&OX4. NO RESPIRATORY DISTRESS. NO PAIN. SAFETY PRECAUTIONS HAVE BEEN IMPLEMENTED. CALL LIGHT WITHIN REACH. ALL NEEDS ATTENDED. ENDORSED TO AM SHIFT NURSE FOR CONTINUITY OF CARE.
--- NOTE | 2019-09-08 07:30 | NUR ---
REMOTELY OPERATED VEHICLE NOTES CHANGED THE DRESSING ON RIGHT FORE ARM IT STILL BLEEDING NOTED.
[2019-09-08] MEDS ORDERED: methylPREDNISolone SOD SUCC 40 MG/ML VIAL IV SCH (08:00)
[2019-09-08 08:19] LABS: BAND % (MANUAL) 4 % (0.0-5.0); LYMPHOCYTES % (MANUAL) 6 % (16-48); MONOCYTES % (MANUAL) 8 % (0-11.0); NEUTROPHILS % (MANUAL) 82 (42-76)
[2019-09-08] MEDS: MONTELUKAST SODIUM (10MG) 10 MG TABLET PO SCH (08:38)
[2019-09-08] MEDS: cetrizine 10 MG TABLET PO SCH (08:38)
[2019-09-08] MEDS: PAROXETINE HCL 10 MG TABLET PO SCH (08:39)
[2019-09-08] MEDS: ASPIRIN EC 81 MG TABLET.DR PO SCH (08:39)
[2019-09-08] MEDS: AMIODARONE HCL 200 MG TABLET PO SCH ×2 (08:39→22:02)
[2019-09-08] MEDS: SPIRONOLACTONE 25 MG TABLET PO SCH (08:39)
[2019-09-08] MEDS: ALBUTEROL FS 2.5 MG/3 ML VIAL.NEB NEB PRN (10:27)
[2019-09-08] MEDS: PANTOPRAZOLE 40 MG VIAL IV SCH (10:46)
--- NOTE | 2019-09-08 11:00 | NUR ---
REVENUE AUDIT CLERK NOTES DR.SAM STAPLETON MADE ROUNDS WITH PATIENT AND MADE AWARE ABOUT THE RIGHT HAND BLEEDING, MAKE WOUND DRESSING,MONITOR THE BLEEDING AND CONTINUE THE XARELTO TAB.FAMILY IS AT BEDSIDE.NEW ORDERS NOTED AND CARRIED OUT.
[2019-09-08] MEDS: INSULIN REGULAR, HUMAN 100 UNIT/ML 3 ML VIAL SQ PRN ×2 (11:59→17:22)
[2019-09-08] MEDS: RIVAROXABAN 10 MG TABLET PO SCH (12:03)
[2019-09-08] MEDS ORDERED: CELLULOSE,OXIDIZED 1 EA PACK MC ONE (17:30)
--- NOTE | 2019-09-08 18:46 | NUR ---
SEQUINS SLINGER CLOSING NOTES PT IS LYING ON BED WITH NC 3LPM O2 CONTINUOUSLY,ACTIVE BLEEDING NOTED ON RIGHT FOREARM,WOUND DRESSING HAS DONE WITH SURGI CELL.FAMILY IS AT BEDSIDE.RESPIRATION IS EVEN AND NONLABORED.NO SIGNIFICANT CHANGES NOTED IN THE SHIFT.WILL ENDORSE TO STREET LIGHT REPAIRER HELPER RN FOR HEMANT AND MONITOR THE BLEEDING.
--- NOTE | 2019-09-08 19:40 | NUR ---
RN OPENING NOTES RECEIVED REPORT FROM DAYSHIFT KAITLIN BROWN. FOUND Pt AWAKE, RESTING IN BED, NO S/S OF ACUTE DISTRESS OR SEVERE SOB NOTED. VISITING AT BEDSIDE. Pt IS A/OX4, VERBAL, ABLE TO MAKE NEEDS KNOWN. IV ACCESS ON L WRIST #22G, SL. ON TELE MONITOR, WITH TELE READING SR9. PER REPORT Pt GETS ANXIOUS VERY EASILY, WHICH THEN CAN TRIGGER HER SOB. Pt HAS SCHEDULED BREATHING TREATMENT THAT Pt IS AWARE OF. SAFETY MEASURES IN PLACE. BED LOW, LOCKED, HOB ELEVATED, SIDE RAILS UP, CALL LIGHT AND BEDSIDE TABLE WITHIN REACH. WILL CONTINUE TO MONITOR Pt's CONDITION AND SAFETY THROUGHOUT THE NIGHT.
[2019-09-08] MEDS: LORAZEPAM INJ 2 MG/ML VIAL IV PRN (21:58)
[2019-09-08] MEDS: ATORVASTATIN 10 MG TABLET PO SCH (21:59)
[2019-09-09] VITALS: BP 166/92
--- NOTE | 2019-09-09 | NUR ---
RN NOTES BG 159. ADMINISTERED 2UN OF INSULIN PER SLIDING SCALE.
[2019-09-09] MEDS: LEVALBUTEROL HCL NEB 1.25 MG/0.5 ML VIAL.NEB IH SCH ×3 (01:12→14:08)
[2019-09-09] MEDS: VANCOMYCIN 1.25 GM in IV D5W 250 ML IV SCH ×2 (01:45→12:00)
[2019-09-09] MEDS: BLOOD SUGAR DIAGNOSTIC 1 EACH STRIP IN SCH ×3 (01:46→11:55)
[2019-09-09] MEDS: INSULIN REGULAR, HUMAN 100 UNIT/ML 3 ML VIAL SQ PRN ×2 (01:57→11:46)
[2019-09-09 04:00] VITALS: BP 148/68
--- NOTE | 2019-09-09 06:00 | NUR ---
RN NOTES BG 112. NO INSULIN COVERAGE NEEDED AT THIS TIME.
[2019-09-09 06:39] LABS: BASOPHILS # (AUTO) 0.1 /CMM (0.0-0.2); BASOPHILS % (AUTO) 0.2 % (0.0-2.0); EOSINOPHILS % (AUTO) 0.2 % (0.0-6.0); HEMATOCRIT 29 % (33-45); HEMOGLOBIN 9.6 g/dL (11.5-14.8); LYMPHOCYTES # (AUTO) 2.1 /CMM (0.8-4.8); LYMPHOCYTES % (AUTO) 7.3 % (20.0-44.0); MEAN CORPUSCULAR HGB CONC 33 g/dl (31.0-36.0); MEAN CORPUSCULAR VOLUME 83 fL (82-100); MONOCYTES # (AUTO) 3.2 /CMM (0.1-1.30); MONOCYTES % (AUTO) 11.3 % (2.0-12.0); NEUTROPHILS # (AUTO) 22.9 /CMM (1.8-8.9); PLATELET COUNT (AUTO) 430 /CMM (150-450); WHITE BLOOD COUNT (AUTO) 28.3 K/uL (4.3-11.0)
--- NOTE | 2019-09-09 07:00 | NUR ---
SENIOR INVESTMENT MANAGER OPENING NOTES RECEIVED PATIENT FROM PM SHIFT. PATIENT IS AWAKE A/0 X4. PATIENT IS RESTING IN BED. PATIENT SHOWS NO S/S OF ACUTE DISTRESS OR SEVERE SHORTNESS OF BREATH. PATIENT IS VERBAL AND ABLE TO MAKE NEEDS KNOWN. PATIENT HAS L WRIST 22 SL. PATIENT IS ON TELE MONITOR , WITH TELE READING 70'S SR . BED LOWEST AND LOCKED POSITION, HEAD OF BED ELEVATED , 2X RAILS UP . CALL LIGHT WITH IN REACH
[2019-09-09 07:10] LABS: CALCIUM, SERUM 8.7 mg/dL (8.5-10.1); CREATININE 0.7 mg/dL (0.6-1.3); MAGNESIUM 1.9 mg/dL (1.8-2.4); PHOSPHORUS 3.6 mg/dL (2.5-4.9); POTASSIUM 4.8 mmol/L (3.5-5.1)
[2019-09-09 07:24] LABS: BAND % (MANUAL) 1 % (0.0-5.0); LYMPHOCYTES % (MANUAL) 11 % (16-48); MONOCYTES % (MANUAL) 10 % (0-11.0); NEUTROPHILS % (MANUAL) 78 (42-76)
--- NOTE | 2019-09-09 07:41 | NUR ---
RN CLOSING NOTES NO SIGNIFICANT CHANGES IN Pt's CONDITION. ALL NEEDS MET AND ATTENDED TO. Pt IS AWAKE, RESTING IN BED. NO S/S OF ACUTE DISTRESS OR SOB NOTED DURING THE NIGHT. SAFETY MEASURES IN PLACE. WILL ENDORSE TO DAYSHIFT RN FOR Pt's HEMANT.
[2019-09-09 08:00] VITALS: BP 123/69
[2019-09-09] MEDS: IPRATROPIUM NEB FS 0.5 MG/2.5 ML AMPUL.NEB NEB SCH ×2 (08:23→14:08)
[2019-09-09] MEDS: ACETAMINOPHEN 325 MG TABLET PO PRN (08:52)
[2019-09-09] MEDS: MONTELUKAST SODIUM (10MG) 10 MG TABLET PO SCH (08:52)
[2019-09-09] MEDS: ASPIRIN EC 81 MG TABLET.DR PO SCH (08:55)
[2019-09-09] MEDS: cetrizine 10 MG TABLET PO SCH (08:55)
[2019-09-09] MEDS: PAROXETINE HCL 10 MG TABLET PO SCH (08:55)
[2019-09-09] MEDS: SPIRONOLACTONE 25 MG TABLET PO SCH (08:55)
[2019-09-09] MEDS: AMIODARONE HCL 200 MG TABLET PO SCH (08:55)
[2019-09-09] MEDS ORDERED: predniSONE 20 MG TABLET PO SCH (09:00)
[2019-09-09] MEDS: PANTOPRAZOLE 40 MG VIAL IV SCH (11:18)
[2019-09-09 12:00] VITALS: BP_SYST 125; BP_DIAS 59; BP_DIAS 90
[2019-09-09] MEDS: RIVAROXABAN 10 MG TABLET PO SCH (12:02)
--- NOTE | 2019-09-09 19:30 | NUR ---
INTEGRITY MANAGER CLOSING NOTES PATIENT A/O X4 PATIENT IS AWAKE OF TREATMENT PLAN FOR THE DAY. PATIENT WAS ALSO INFORMED ABOUT DISCHARGE. AT BEDSIDE. PATIENT EXPERIENCE ANXIETY BECAUSE OF THE TRANSFER SHE SAID SHE KNOWS MOVING AROUND IS OGING TO HURT HER BODY. PRIOR TO DISCHARGE PT GAVE BREATHING TREATMENT. PATIENT TRANSFERED TO [facility]. WHILE STILL AT HOSPITAL BED LOWEST POSITION, CALL LIGHT WITH IN REACH. SAFETY MAINTAINED. ENDORSED TO [facility] STAFF.
== END 2019-09-09 16:02 | DRG 208 ==
LOC: TELE1 11:18 → ICU 09-03 02:14 → TELE-TD 09-06 18:45 → TELE1 09-07 10:07
PROVIDERS: ADMIT Nurse Practitioner Acute Care
PROC: 5A12012 Performance of Cardiac Output, Single, Manual (ICD-10-PCS; principal; 2019-09-03)
PROC: 5A2204Z Restoration of Cardiac Rhythm, Single (ICD-10-PCS; principal; 2019-09-03)
PROC: 0BH17EZ Insertion of Endotracheal Airway into Trachea, Via Natural or Artificial Opening (ICD-10-PCS; principal; 2019-09-03)
PROC: 5A1945Z Respiratory Ventilation, 24-96 Consecutive Hours (ICD-10-PCS; principal; 2019-09-03)
DX: J15.9 Unspecified bacterial pneumonia (principal); J96.02 Acute respiratory failure with hypercapnia; I21.A1 Myocardial infarction type 2; I46.9 Cardiac arrest, cause unspecified; D68.59 Other primary thrombophilia; J45.901 Unspecified asthma with (acute) exacerbation; E78.5 Hyperlipidemia, unspecified; E66.9 Obesity, unspecified; I25.10 Atherosclerotic heart disease of native coronary artery without angina pectoris; F32.9 Major depressive disorder, single episode, unspecified; F41.9 Anxiety disorder, unspecified; I48.0 Paroxysmal atrial fibrillation; K58.9 Irritable bowel syndrome, unspecified; Z87.01 Personal history of pneumonia (recurrent); Z87.891 Personal history of nicotine dependence; Z86.718 Personal history of other venous thrombosis and embolism; Z86.711 Personal history of pulmonary embolism; D47.3 Essential (hemorrhagic) thrombocythemia; I10 Essential (primary) hypertension; G47.33 Obstructive sleep apnea (adult) (pediatric); Z68.31 Body mass index [BMI] 31.0-31.9, adult; Z79.01 Long term (current) use of anticoagulants
CPT/HCPCS: 31720; 36415; 36600; 71045-TC; 80048-TC; 80053-TC; 80202-TC; 82803-TC; 82962-TC; 83735-TC; 84100-TC; 84443-TC; 84484-TC; 85025-TC; 85610-TC; 85730-TC; 92526; 92611-TC; 93307-TC; 93970-TC; 94002-TC; 94003-TC; 94760-TC; 94799-TC; 97112-TC; 97116-TC; 97530-TC; A6253; A6403; C9113; G0378; J0153; J0282; J0330; J0692; J0696; J1815; J2060; J2185; J2270; J2920; J3370; J3475; J3490; J7030; J7040; J7050; J7060